=== PATIENT | male | born 1990 | race African-American/Black ===

== ENCOUNTER 2023-08-15 23:05 | Inpatient (IN) | payer OTHER, SELFPAY ==
[2023-08-15 16:31] VITALS: BP 133/65
--- NOTE | 2023-08-15 16:41 | ED.GENMED ---
History of Present Illness
General
Chief Complaint: Overdose Unintentional
Time Seen by Provider: 08/15/23 16:25
Travel History
Have you had any contact with someone who has COVID-19?: No
Do you have any symptoms of coronavirus? Fever > 100 degrees, chills, cough, shortness of breath, sore throat, loss of taste or smell, muscle aches, or headache?: No
History of Present Illness
History of Present Illness:
33-year-old male with history of sickle cell disease presents to the emergency department via EMS after being found sleeping underneath a truck in the [facility] parking lot. He had apparently inhaled 12 cans of electronic duster. States that he is
currently on probation and feels that this is the only way he can get high. Upon arrival he has noted to have saturations in the upper 80% range on room denies any chest pain or difficulty breathing at this time. Denies any suicidal ideation.
Past History
Past History
ED Past Medical History: Asthma and Other (sickle cell, GI bleeding,)
ED Past Surgical History: None and Other (Adenoids)
Patient has exhibited threatening behavior?: No
PSI?: No
Social History
Tobacco: Non-smoker
Alcohol: None
Drug: None
Personal: Single
Living: with family
Employment: Student
Review of Systems
Review of Systems
Allergies reviewed?: Yes
All Other Systems: ROS reviewed and negative except as documented in HPI and ROS
Phy Exam
Physical Exam
Physical Exam:
GEN: Well appearing, NAD, WDWN
Eyes: PERRLA, EOMs intact, no scleral icterus
HENT: NCAT, oral mucosa moist.
Lungs: CTAB, no wheezes, rales, rhonchi, normal chest wall excursion
Cardiac: RRR, no M/R/G, no peripheral edema. Radial pulses 2+ bilat
Neuro: Somewhat somnolent but arouses easily, oriented fully, moves all extremities freely
MSK: No gross deformity or ecchymosis. No edema. No digital clubbing
Skin: No rashes, petechiae. Normal color, no pallor or jaundice.
Psych: Calm, cooperative, proper hygiene
Course
Orders/Labs/Results
Orders:
Orders
08/15/23 16:31
Electrocardiogram (*1) Urgent
Reason for Study: QTc Monitoring
EKG- Treatment ONCE
08/15/23 18:27
CR Chest - 2 Views Urgent
Comment:
Reason For Exam: hypoxia
08/15/23 21:17
Type+Screen Urgent
Complete Blood Count/With Diff Urgent
Comprehensive Metabolic Panel Urgent
Direct Bilirubin Urgent
LDH Urgent
Reticulocyte Count Urgent
08/15/23 21:59
Add On- LAB Urgent
Tests Added?: LDH, direct bilirubin
0.9% Sodium Chloride 1000 ml [Nss] 1,000 ml IV BOLUS
Abnormal Lab Results
08/15/23
21:17
WBC 21.6 H 10^3/uL
(4.8-10.8)
RBC 2.19 L 10^6/uL
(4.70-6.10)
Hgb 7.8 L g/dL
(13.0-18.0)
Hct 21.1 L %
(39.0-52.0)
MCV 96.3 H fL
(80.0-94.0)
MCH 35.6 H pg
(27.0-31.0)
RDW 24.9 H %
(11.5-14.5)
Abs Immat Gran (auto) 0.2 H 10^3/uL
(0-0.05)
Absolute Neuts (auto) 17.0 H 10^3/uL
(1.4-6.5)
Absolute Monos (auto) 1.4 H 10^3/uL
(0.1-0.6)
Immature Gran % 1.1 H %
(0-0.5)
Neutrophils % 78.7 H %
(42.2-75.2)
Lymphocytes % 12.6 L %
(20.5-51.1)
Retic Count 24.0 H %
(0.4-2.8)
Sodium 133 L mmol/L
(135-145)
Glucose 108 H mg/dl
(70-99)
Total Bilirubin 8.5 H mg/dl
(0.2-1.3)
08/15/23 21:17
08/15/23 21:17
Vital Signs
Initial and Last Documented VS:
Initial Vital Signs
Temp Pulse Resp BP Pulse Ox
98 F 83 16 133/65 98
08/15/23 16:31 08/15/23 16:31 08/15/23 16:31 08/15/23 16:31 08/15/23 16:31
Last Documented Vital Signs
Temp Pulse Resp BP Pulse Ox
98 F 102 16 111/56 97
08/15/23 16:31 08/15/23 18:17 08/15/23 18:17 08/15/23 18:17 08/15/23 18:17
MDM/Problems Addressed
MDM/Problems Addressed:
Initially the patient was felt to be presenting in mild hypoxic episode due to hydrocarbon inhaler use however due to persistent hypoxia chest x-ray was obtained, by my interpretation shows mild cardiomegaly and bilateral atelectasis. Given these
findings labs were obtained showing an elevated reticulocyte count and elevated total bilirubin concern for acute chest syndrome in the setting of sickle cell disease. Likely provoked by inhaler use. Will admit for IV fluids and oxygen
*Critical Care Note
Total Time (30-74mins, 75-104mins- exclusive of procedures): Not Applicable
Update Note
Update Note:
1825: Pt remains hypoxic, requiring supplemental O2. Will check CXR, may require labs to eval for sickle cell crisis although he denies CP or myalgia
2023: Patient eventually consented to chest x-ray and labs to evaluate for potential acute chest syndrome/sickle cell crisis. He remains free of chest pain or shortness of breath but continues to have hypoxia on room air
1003: Pt with continued hypoxia, placed on 12L NRB. T bili and retic count high. Will admit for acute chest syndrome
ED Attending Note
-
Portions of this chart may have been created with voice recognition software.� Occasional wrong word or��sound alike� substitutions may have occurred due to the inherent limitations of voice recognition software.
Discharge Plan
Departure
Patient Disposition: Admit
Date of Disposition: 08/15/23
Time of Disposition: 22:08
Admit to: Med/Surg
Presentation/result/management discussed w/ accepting MD/DO: Hospitalist
Discharge Problem:
Acute chest syndrome, Acute hypoxemic respiratory failure, Inhalant use disorder
Prescriptions:
No Action
hydroxyurea 500 mg Capsule
500 mg PO DAILY 30 Days Qty: 30 2RF
folic acid 1 mg Tablet
1 mg PO DAILY Qty: 30 0RF
multivitamin [Daily-Suzie] Tablet
1 tab PO DAILY
potassium chloride [Klor-Con] 20 mEq Packet
20 meq PO DAILY
pseudoephedrine HCl [Sudogest] 30 mg Tablet
30 mg PO DAILY
loratadine 10 mg Tablet
10 mg PO DAILY
quetiapine 150 mg Tablet
300 mg PO HS
Referrals:
NONE,* [Family Provider] -
Interventions
Interventions:
*Risk Screen - Suicide Last Done: 08/15/23 16:34
*General Assessment Last Done: 08/15/23 16:34
*Neglect/Abuse Screening Last Done: 08/15/23 16:34
*ED COVID-19 Vaccine History Last Done: 08/15/23 16:34
ED- Cardiac Assessment Last Done: 08/15/23 16:36
ED- Neurological Assessment Last Done: 08/15/23 16:36
ED-Psychological Assessment Last Done: 08/15/23 16:37
ED- Pulmonary Assessment Last Done: 08/15/23 16:36
Discharge Date and Time
Print Language: TOGOLESE
[2023-08-15 18:17] VITALS: BP 111/56
[2023-08-15 21:23] LABS: % Basophils 0.6 % (0-2); % Eosinophils 0.6 % (0-6); % Immature Granulocytes 1.1 % (0-0.5); % Lymphocytes 12.6 % (20.5-51.1); % Monocytes 6.4 % (1.7-9.3); % Neutrophils 78.7 % (42.2-75.2); Absolute Basophils 0.1 10^3/uL (0-0.2); Absolute Eosinophils 0.1 10^3/uL (0-0.7); Absolute Immature Granulocytes 0.2 10^3/uL (0-0.05); Absolute Lymphocytes 2.7 10^3/uL (1.2-3.4); Absolute Monocytes 1.4 10^3/uL (0.1-0.6); Hematocrit 21.1 % (39.0-52.0); Hemoglobin 7.8 g/dL (13.0-18.0); Mean Corpuscular Hgb 35.6 pg (27.0-31.0); Mean Corpuscular Volume 96.3 fL (80.0-94.0); Mean Platelet Volume 8.9 fL (7.4-10.4); Nucleated Red Blood Cells % 2.2 % (-); Platelet Count 381 10^3/uL (130-400); Red Blood Cell Count 2.19 10^6/uL (4.70-6.10); Red Cell Dist. Width 24.9 % (11.5-14.5); White Blood Cell Count 21.6 10^3/uL (4.8-10.8)
[2023-08-15 21:44] LABS: ALT (SGPT) 23 U/L (0-50); AST (SGOT) 46 U/L (17-59); Albumin 4.1 g/dl (3.5-5.0); Alkaline Phosphatase 69 U/L (38-126); Blood Urea Nitrogen 9 mg/dl (9-20); Calcium 8.9 mg/dl (8.4-10.2); Carbon Dioxide 27 mmol/L (22-30); Chloride 98 mmol/L (98-107); Glucose 108 mg/dl (70-99); Potassium 4.1 mmol/L (3.5-5.1); Sodium 133 mmol/L (135-145); Total Bilirubin 8.5 mg/dl (0.2-1.3); Total Protein 7.6 g/dl (6.3-8.2); eGFR > 60.00
[2023-08-15 21:46] LABS: Anisocytosis 2+
[2023-08-15 21:47] LABS: Macrocytosis 2+; Microcytosis 2+
[2023-08-15 21:48] LABS: Polychromasia 1+
[2023-08-15 21:49] LABS: Poikilocytosis 1+; Target Cells Slight
[2023-08-15 21:50] LABS: Ovalocytes Slight
[2023-08-15 21:52] LABS: Sickled Red Blood Cells 3+
[2023-08-15 21:53] LABS: Normal RBC Morphology No
[2023-08-15 22:12] LABS: Direct Bilirubin 0.3 mg/dl (0.0-0.4); LDH 573 U/L (120-246)
[2023-08-15] MEDS: NSS 1000 IV (22:26)
--- NOTE | 2023-08-15 22:47 | HPS.HSE ---
Family Physician
-
Family Physician: * NONE
Chief Complaint
-
hypoxia
History of Present Illness
33-year-old male past medical history of sickle cell disease, asthma, presenting via EMS after being found sleeping underneath a truck in the [facility] parking lot. Truck was stationary. He had apparently inhaled 12 cans of electronic duster today
prior to coming in. Denies inhaling any truck fumes. He is currently on probation and feels that this is the only way he can get high. He was approached by police and EMS brought him to the hospital.
He denies any chest pain or breathing difficulty. He denies any fevers or chills. He denied any suicidal ideation. He denies any body pains.
Last received blood transfusion 2 months ago. He is on Hydrea but does not follow care program director at this time.
He denies smoking. He does use marijuana sometimes. He drinks alcohol socially. Denies any other drugs.
Medical History
Past Medical History
Past Medical History: Reports Other ( sickle cell disease, asthma)
Past Surgical History: Reports None
Social History
Tobacco: Non-smoker
Alcohol: Occasional
Drug: Marijuana
Family History
Family History: Not pertinent
Allergies / Home Medications
Allergies reflects when Allergies were last updated in [employer].
Home Medications with original date entered in [facility]
Allergy/Medication List:
Allergies
Allergy/AdvReac Type Severity Reaction Status Date / Time
[place] And Derivatives Allergy Unknown Verified 02/05/23 03:49
Home Medications
folic acid 1 mg tablet 1 mg PO DAILY Supplement #30 tabs 10/28/22
hydroxyurea 500 mg capsule 500 mg PO DAILY Autoimmune Disorder 30 days #30 caps 10/28/22
loratadine 10 mg tablet 10 mg PO DAILY 02/05/23
multivitamin (Daily-Suzie tablet) 1 tab PO DAILY 02/05/23
quetiapine 100 mg tablet 300 mg PO HS 08/15/23
Review of Systems
-
History Source: Patient
A 12 point ROS was completed and negative except as noted: Yes
Constitutional: Reports No Symptoms
EENT: Reports No Symptoms
Respiratory: Reports See HPI
Cardiac: Reports No Symptoms
Abdomen/GI: Reports No Symptoms
: Reports No Symptoms
Musculoskeletal: Reports No Symptoms
Skin: Reports No Symptoms
Neurological: Reports No Symptoms
Endocrine: Reports No Symptoms
Hematologic/Lymphatic: Reports No Symptoms
Psych: Reports No Symptoms
Physical Exam
Vital Signs
Vital Signs
Temp Pulse Resp BP Pulse Ox
98 F 102 16 111/56 97
08/15/23 16:31 08/15/23 18:17 08/15/23 18:17 08/15/23 18:17 08/15/23 18:17
Physical Exam
General: Well Developed, Well Nourished and No Apparent Distress
HEENT: NormoCephalic, Moist mucous membranes and Atraumatic
Respiratory: Clear
Cardiac: S1/S2 and Regular Rhythm; No Murmur or Rub
GI: Soft, Non Tender, Non Distended and Normal Bowel Sounds; No Organomegaly
Rectal: Deferred by Provider
Musculoskeletal: No Clubbing, No Cyanosis and No Edema
Skin: No Rash
Neuro: Nonfocal/grossly intact
Laboratory Results
-
08/15/23 21:17
08/15/23 21:17
Laboratory Results
Total Bilirubin 8.5 mg/dl (0.2-1.3) H 08/15/23 21:17
AST 46 U/L (17-59) 08/15/23 21:17
ALT 23 U/L (0-50) 08/15/23 21:17
Alkaline Phosphatase 69 U/L (38-126) 08/15/23 21:17
Data Reviewed
-
Lab Data: Labs Reviewed by me
Old Records: Reviewed
Impression/Plan
-
IMPRESSION:
PLAN:
# Hypoxic respiratory failure secondary to acute chest syndrome secondary to inhalation lung injury from electronic duster
# Sickle cell crisis
-Patient hypoxic requiring 12 L nonrebreather
-No wheezing on examination
-Chest x-ray does not show any definitive focal cardiopulmonary process or signs of infection
-Check carboxyhemoglobin
-IV fluids
-Check type and screen
-Hemoglobin 7.8 so 2 units of blood transfusion to keep hemoglobin above 9
-Total bilirubin 8.5, LDH 570, reticulocyte count of 24%
-Continue hydroxyurea
-Continue folic acid
-No significant pain, avoid opiates
-Oncology consulted
History of mild asthma
-Not on treatment
-DuoNebs every 6 hours for wheezing as needed
Anxiety/depression
-Continue Seroquel
Marijuana user
Full code
DVT prophylaxis�Lovenox
regular diet
[2023-08-15 23:13] VITALS: BP 140/75
[2023-08-16] VITALS (23 sets, daily range): BP systolic 94–180; BP diastolic 60–115; BMI 24.1
[2023-08-16 00:36] LABS: Carboxyhemoglobin 4.3 %
--- NOTE | 2023-08-16 03:49 | TRANSFER ---
Receive pt from the Er at 0320. He was able to ambulate to his bed from the stretcher. He has a unit of PRBC's running via a L AC IV site. Arrived on O2 non rebreather mask.at 12L. Does not want midflow, he prefers the mask. Monitor shows NSR
60's and Pulse Ox i 100%. BP stable 133/82. No complaints of SOB. He is alert and oriented x 3. Oriented to his room and call diaz in reach.
--- NOTE | 2023-08-16 08:25 | CON.ONC ---
Addendum entered and electronically signed by Gilberto Wilkerson DO 08/16/23 11:44:
Patient examined independently and chart reviewed. Agree with the impression and plan as outlined by FUNNEL SETTER below. Sitting up in bed and conversing comfortably without shortness of breath. Exam essentially negative. Hemoglobin 9.8 g/dL
posttransfusion. Total bilirubin regressing 5.3 mg per DL, baseline 3.0. During acute sickling events patient has had LDH in the range of 5000. Continue supportive measures as outlined.
Original Note:
Impression
Impression
Hypoxic respiratory failure secondary to inhalation lung injury from Dust-off
Inhalant abuse
Hx of drug abuse
Acute chest syndrome
Acute sickle cell crisis
Reticulocytosis
Hemolytic anemia
Elevated MCV with use of Hydrea
Leukocytosis
Neutrophilia
Bipolar/anxiety/depression
Plan
Plan
08/14 Hgb 7.8, Hct 21.1
s/p 2units PRBCs
Transfuse as needed to maintain Hgb >8
CBC with diff daily; remains pending this AM
Additional labs ordered: B12/folate, LDH, haptoglobin
Continue Hydrea 500mg daily
Case management consult
Patient agreeable to Psych consult - discussed with Dr. Desai and Dr. Calderon
Dr. Calderon recommends consultation with [facility] via Case Management
Supportive care, pain management
Patient will need to establish with outpatient clinical radiologist upon discharge for management of SS and Hydrea. He is agreeable.
He will require frequent CBC monitoring at least [id number] on Hydrea. We will follow.
Patient History
History of Present Illness
Jules Davis is a pleasant 33 year old male with history of sickle cell disease. He has been seen frequently in ER by Urology for recurrent priapisms while he was incarcerated. He presented last evening, 08/14, via EMS after being found
asleep underneath a stationary truck in a local [employer] parking lot. He had inhaled 12 cans of dust-off and the cans were found around him. He does not recall this. He states he 'was a little too reckless.' He is currently on probation; formerly a
prisoner at [facility]. He has received blood transfusions in the past and he is maintained on Hydrea. He does not have a current Hairspring Assembler. Hydrea was prescribed by the snf's Physician Learning Coach within the past year. He states he has had two
episodes of acute crisis requiring blood products in the past year as well as recurrent priapisms. He required non-rebreather in the ER due to acute hypoxia. He has been admitted for further evaluation and treatment. Currently, he denies acute
symptoms of pain, chest pain, or shortness of breath. He has been out of snf for 3 months and has 8 months left of probation. He is currently living in the [facility] with his father.
Past-Medical/Surgical History
Sickle cell disease
Recurrent priapism
Mild asthma
Hx of drug abuse: inhalants, marijuana, meth, MDMA, cocaine
Hx GIB
Bipolar
Anxiety, depression
Anemia
Patient Medication
�Medication �Instructions �Recorded �Confirmed �Last Taken �Type
folic acid 1 mg tablet 1 mg PO DAILY Supplement #30 tabs 10/28/22 08/15/23 2 Days Ago Rx
~08/13/23
hydroxyurea 500 mg capsule 500 mg PO DAILY Autoimmune 10/28/22 08/15/23 2 Days Ago Rx
Disorder 30 days #30 caps ~08/13/23
loratadine 10 mg tablet 10 mg PO DAILY 02/05/23 08/15/23 2 Days Ago History
~08/13/23
multivitamin (Daily-Suzie tablet) 1 tab PO DAILY 02/05/23 08/15/23 2 Days Ago History
~08/13/23
quetiapine 100 mg tablet 300 mg PO HS 08/15/23 08/15/23 2 Days Ago History
~08/13/23
Active Medications
Generic Name Dose Route Start Last Admin
Trade Name Freq PRN Reason Stop Dose Admin
Acetaminophen 650 mg 08/16/23 00:19
Acetaminophen 325 Mg Tablet PO 09/13/23 00:18
Q4HPRN PRN
mild pain/OLIVA/temp> 100.4F
Albuterol/Ipratropium 3 ml 08/16/23 00:19
Ipratropium 0.5/Albuterol 3 Mg (3 Ml Ampul) INH
R Q4HPRN PRN
wheezing
Protocol
Enoxaparin Sodium 40 mg 08/16/23 18:00
Enoxaparin Sodium 40 Mg/0.4 Ml Syringe SC 09/13/23 17:59
QPM ROBERTO
Folic Acid 1 mg 08/16/23 08:00
Folic Acid 1 Mg Tablet PO 09/13/23 07:59
DAILY ROBERTO
Hydroxyurea 500 mg 08/16/23 08:00
Hydroxyurea 500 Mg Capsule PO 09/13/23 07:59
DAILY ROBERTO
Sodium Chloride 1,000 mls @ 100 mls/hr 08/16/23 00:19
Nss IV
.Q10H ROBERTO
Loratadine 10 mg 08/16/23 08:00
Loratadine 10 Mg Tablet PO 09/13/23 07:59
DAILY ROBERTO
Multivitamins Therapeutic 1 tablet 08/16/23 08:00
Multivitamin Tablet PO 09/13/23 07:59
DAILY ROBERTO
Quetiapine Fumarate 300 mg 08/16/23 22:00
Quetiapine 100 Mg Tablet PO 09/13/23 21:59
HS ROBERTO
Sodium Chloride 0 flush 08/16/23 02:00
Sodium Chloride 0.9% (Flush) Syringe IV 09/13/23 01:59
PER PROTOCOL ROBERTO
Review of Systems
-
History Source: Patient, Coordinated Provider and Records
Constitutional: Reports No Symptoms
EENT: Reports No Symptoms
Respiratory: Reports No Symptoms
Cardiac: Reports No Symptoms
GI: Reports No Symptoms
Breast: Reports N/A
: Reports No Symptoms
Musculoskeletal: Reports No Symptoms
Skin: Reports No Symptoms
Neuro: Reports No Symptoms
Endocrine: Reports No Symptoms
Hematologic/Lymphatic: Reports No Symptoms
Allergy / Immunology: Reports No Symptoms
Psych: Reports No Symptoms
Physical Exam
-
Patient is resting in bed. Tolerating breakfast. on nasal cannula oxygen. denies pain. he states he is agreeable to consult with Psych and CM/SW.
General: Well Developed, Well Nourished, No Apparent Distress, Comfortable and Conversant
HEENT: Jaundice (scleral icterus)
Cardiology: S1 and S2
Pulmonary: Other (diminished, 2L O2 via nasal cannula )
GI: Soft and Normal Bowel Sounds
Genito-Urinary: Deferred by me and Other (cleo/yellow urine)
Musculoskeletal: No Edema
Extremities: Pulses Present
Neurology: Non Focal
Skin: Warm and Dry
Hematologic / Lymphatic: No Lymphadenopathy
Psych: Calm
Labs
Lab Results
WBC 21.6 10^3/uL (4.8-10.8) H 08/15/23 21:17
RBC 2.19 10^6/uL (4.70-6.10) L 08/15/23 21:17
Hgb 7.8 g/dL (13.0-18.0) L 08/15/23 21:17
Hct 21.1 % (39.0-52.0) L 08/15/23 21:17
MCV 96.3 fL (80.0-94.0) H 08/15/23 21:17
MCH 35.6 pg (27.0-31.0) H 08/15/23 21:17
MCHC 37.0 g/dL (33.0-37.0) 08/15/23 21:17
RDW 24.9 % (11.5-14.5) H 08/15/23 21:17
Plt Count 381 10^3/uL (130-400) 08/15/23 21:17
MPV 8.9 fL (7.4-10.4) 08/15/23 21:17
Abs Immat Gran (auto) 0.2 10^3/uL (0-0.05) H 08/15/23 21:17
Absolute Neuts (auto) 17.0 10^3/uL (1.4-6.5) H 08/15/23 21:17
Absolute Lymphs (auto) 2.7 10^3/uL (1.2-3.4) 08/15/23 21:17
Absolute Monos (auto) 1.4 10^3/uL (0.1-0.6) H 08/15/23 21:17
Absolute Eos (auto) 0.1 10^3/uL (0-0.7) 08/15/23 21:17
Absolute Basos (auto) 0.1 10^3/uL (0-0.2) 08/15/23 21:17
Immature Gran % 1.1 % (0-0.5) H 08/15/23 21:17
Neutrophils % 78.7 % (42.2-75.2) H 08/15/23 21:17
Lymphocytes % 12.6 % (20.5-51.1) L 08/15/23 21:17
Monocytes % 6.4 % (1.7-9.3) 08/15/23 21:17
Eosinophils % 0.6 % (0-6) 08/15/23 21:17
Basophils % 0.6 % (0-2) 08/15/23 21:17
Creatinine 0.7 mg/dL (0.7-1.3) 08/15/23 21:17
Vital Signs
Vital Signs
Temp Pulse Resp BP Pulse Ox
98.6 F 75 14 133/76 100
08/16/23 07:00 08/16/23 07:45 08/16/23 07:45 08/16/23 06:39 08/16/23 07:56
08/15/23 CXR: No definite focal acute cardiopulmonary process. Minimal basilar atelectasis posteriorly.
[2023-08-16] MEDS: NSS 1000 IV ×2 (08:32→17:53)
[2023-08-16] MEDS: HYDREA 500 MG PO (08:32)
[2023-08-16] MEDS: CLARITIN 10 MG PO (08:32)
[2023-08-16] MEDS: FOLVITE 1 MG PO (08:32)
[2023-08-16] MEDS: THERAGRAN 1 TABLET PO (08:32)
[2023-08-16 11:04] LABS: % Basophils 0.8 % (0-2); % Eosinophils 5.2 % (0-6); % Immature Granulocytes 1.1 % (0-0.5); % Lymphocytes 18.5 % (20.5-51.1); % Monocytes 8.2 % (1.7-9.3); % Neutrophils 66.2 % (42.2-75.2); Absolute Basophils 0.1 10^3/uL (0-0.2); Absolute Eosinophils 0.7 10^3/uL (0-0.7); Absolute Immature Granulocytes 0.2 10^3/uL (0-0.05); Absolute Lymphocytes 2.6 10^3/uL (1.2-3.4); Absolute Monocytes 1.2 10^3/uL (0.1-0.6); Absolute Neutrophils 9.4 10^3/uL (1.4-6.5); Hematocrit 26.4 % (39.0-52.0); Mean Corp Hgb Conc. 37.1 g/dL (33.0-37.0); Mean Corpuscular Volume 91.7 fL (80.0-94.0); Mean Platelet Volume 9.1 fL (7.4-10.4); Nucleated Red Blood Cells % 2.6 % (-); Platelet Count 369 10^3/uL (130-400); Red Blood Cell Count 2.88 10^6/uL (4.70-6.10); Red Cell Dist. Width 23.1 % (11.5-14.5); White Blood Cell Count 14.1 10^3/uL (4.8-10.8)
[2023-08-16 11:05] LABS: Hemoglobin 9.8 g/dL (13.0-18.0)
[2023-08-16] MEDS: NSS IV (11:23)
[2023-08-16 11:35] LABS: ALT (SGPT) 22 U/L (0-50); AST (SGOT) 40 U/L (17-59); Alkaline Phosphatase 66 U/L (38-126); Blood Urea Nitrogen 5 mg/dl (9-20); Calcium 9.3 mg/dl (8.4-10.2); Carbon Dioxide 27 mmol/L (22-30); Chloride 105 mmol/L (98-107); Estimated Creatinine Clearance > 125 ml/min; Glucose 127 mg/dl (70-99); Potassium 3.9 mmol/L (3.5-5.1); Sodium 136 mmol/L (135-145); Total Bilirubin 5.3 mg/dl (0.2-1.3); Total Protein 7.6 g/dl (6.3-8.2); eGFR > 60.00
[2023-08-16 12:27] LABS: Folate > 20.0 ng/ml (2.76-20); Vitamin B12 435 pg/ml (239-931)
--- NOTE | 2023-08-16 12:41 | CM ---
Addendum entered by Veronique Silverman RN 08/16/23 15:10:
Spoke with [facility]; the patient was spoken to by phone and is interested in doing the [facility] IOP/Intensive Outpatient program. Someone from [facility] will see him tomorrow and can help him call [facility].
Plan home with [facility] program by public transport.
Original Note:
Patient with Hx sickle cell disease, bipolar/anxiety/depression, substance abuse with Dx hypoxic respiratory failure secondary to inhalation lung injury from Dust-off, Acute chest syndrome, Acute sickle cell crisis s/p transfusions.
Met with patient who states he is temporarily residing in a 2 story row house with his father Cong Traylor in [facility].
Address on chart is mother's house in [place].
The patient has been independent in ADLs and ambulation.
Jules says he uses public transportation to get around.
He has no DME or prior VN.
The patient has no PCP.
Pharmacy - [facility]
CM Consult: help for d/c planning with psychosocial support.
Message to Dr Jolly: CM can only offer [facility] and cannot independently make recommendations for psych resources. Advised that if psych resources are needed, patient may benefit from a Psych Consult.
The patient states he has participated in rehab programs at [facility] and [facility].
He was initially not interested in talking to [facility] but finally agreed, and provided his cell phone for [facility] to contact him.
Plan follow up after seen by [facility].
--- NOTE | 2023-08-16 14:14 | CON.MD ---
Consultation - Medical
-
patient seen chart reviewed. spoke with cm. the patient is a 33 year old male who was brought here after being found sleeping under a truck in the [facility] parking lot. he had huffed more than ten containers of duster. when i asked him what might
have happened if the driver/merchandiser started the engine and pulled out he assured me that this could not have happened as it was just 'part of a truck....' and could not be driven. he huffs bc he is on probation and this is one substance that could not be
detected. when he was no on probation he would use 'everything'. he has been on probation for four years and admits he has violated his probation hence the length of time. he says he is going to go to [facility] [place] for iop. he does not feel he
needs in patient rehab at this point. he is not depressed. he has no sx of psychosis. he says he has been told he is schizophrenic but clearly this is not the case. he was placed on seroquel for sleep while at [facility] but has not taken in in
some time having left skilled nursing three months ago and only was given a one month supply. appetite is good. he can enjoy himself. he is not suicidal. when i asked about bipolar sx he said he has short lived changes in mood due to circumstance and does
not see self as mood labile.
past psych hx patient was in rehab three times at [facility] [place] and he thinks he may have been at dual dx at at some point. he has not taken psych meds regularly. see above
past med hx sickle cell there is notation of prolonged qtc syndrome but qtc normal. i did research back and found some prolonged in the past. patient with hx hyponatremia normal now. he has been transfused to get hgb above eight. hx priapism in
the past. hx asthma
substance abuse 'everythingi when i am not on probation' most recent huffing see above
family hx patient says there is fh of psych and d and a but he cannot really say what illnesses
social hx patient does have family but there is conflict there can stay w dad but not a great space. he has had some jobs but not for long periods of time. says graduated full scale college. enjoys anime and drawing. has had relationship w women
but no kids
mse alert pleasant cooperative. speech and thought process nl no psychosis mood is euthymic affect appropriate no suicidal thoughts intelligence likely average insight judgment not great
dx mixed substance dependence possibly underlying bipolar
plan would dc seroquel. not a great mix with so much huffing. also he was not taking it at all in the past two months according to him. melatonin for sleep 10 mg. he talked to [facility] and they are calling him back later today to see if he would
agree to in patient rehab which he at this moment does not wish to attend. patient should attend rehab but no one can make him do it. he could have underlying bipolar but that dx would take some time to establish and would require a period of
observation when sober. psych signing off.
[2023-08-16 14:31] LABS: Urine Albumin Negative (Neg - Trace); Urine Bilirubin Negative (Negative); Urine Character Clear (Clear); Urine Color Straw; Urine Glucose Negative (Negative); Urine Ketone Negative (Negative); Urine Leukocyte Trace (Negative); Urine Nitrite Negative (Negative); Urine Occult Blood Negative (Negative); Urine Specific Gravity 1.005 (<1.030); Urine Urobilinogen Negative (Neg - 1+)
[2023-08-16] MEDS: VITAMIN B-12 1000 MCG PO (14:33)
[2023-08-16 14:47] LABS: Urine Bacteria Few (Negative); Urine Red Blood Cell 0-2 /HPF (0-2); Urine Squamous Cell 0-2 /LPF (Few); Urine White Cell 0-2 /HPF (0-5)
--- NOTE | 2023-08-16 15:13 | W.PN.HOSP.TC ---
Today's Communication/Plan
-
supportive care, IVF, pain control
monitor O2 needs
repeat labs in AM
tx tele floor
Assessment / Plan
Assessment / Plan
Assessment:
Acute hypoxic respiratory insufficiency
Inhalant abuse
- resolved; now on RA
- CXR Clear
- Carboxyhemoglobin low normal
Hx of Sickle cell disease with acute sickle cell crisis, Reticulocytosis
Anemia, marcocytic - hemolytic
- 2 unit PRBC, Hb now 9.8
- continue IVF
- follow CMP/Bili/Retic/LDH
- continue Hydrea/Folic acid
- Hematology following; will also need OP Hematology f/u
History of mild asthma
- Not on treatment
- DuoNebs every 6 hours for wheezing as needed
Bipolar/anxiety/depression
- psych evaluated; stop Seroquel
Marijuana user
Hx of drug abuse
- BCARES following
HX of priapism
DVT ppx: Lovenox
Code: Full
Anticipated Discharge: 24 - 48 hours
Subjective/Interval History
-
Date of Service: August 16, 2023
no complaints currently
Objective Data
-
Labs:
Laboratory Results
08/16/23 08/16/23
08:37 10:53
WBC 14.1 H
Hgb 9.8 L D
Hct 26.4 L
Plt Count 369
HCO3 Cancelled
Sodium 136
Potassium 3.9
Chloride 105
Carbon Dioxide 27
BUN 5 L
Creatinine 0.7
Glucose 127 H
Calcium 9.3
Total Bilirubin 5.3 H
AST 40
ALT 22
Alkaline Phosphatase 66
Vital Signs:
Vital Signs
Temp Pulse Resp BP Pulse Ox
98.5 F 80 20 136/79 96
08/16/23 11:00 08/16/23 10:00 08/16/23 10:00 08/16/23 10:00 08/16/23 10:00
I&O
08/15/23 08/16/23 08/17/23
06:59 06:59 06:59
Intake Total 490 / 490 250 / 250
Output Total 1100 / 1100 600 / 600
Balance -610 / -610 -350 / -350
Physical Exam
-
General: No Apparent Distress
HEENT: Normocephalic and Atraumatic
Respiratory: Negative Wheezes or Rales
Cardiac: Regular Rhythm and S1/S2
GI: Soft and Nontender
Genito-urinary: No Costovertebral Tender
Musculoskeletal: No Edema
Neuro: AO x 3
Psych: Calm
Data Reviewed
-
Total Time Spent with Patient (in minutes): 45
Labs: Labs Reviewed by me
[2023-08-16] MEDS: LOVENOX 40 MG SC (17:53)
[2023-08-16] MEDS: MELATONIN 10 MG PO (21:48)
[2023-08-17] VITALS (7 sets, daily range): BP systolic 117–150; BP diastolic 61–81
--- NOTE | 2023-08-17 00:16 | PTCARENOTE ---
pt uncooperative at times, ripping off tele leads, BP cuff and oxygen. reapplied.
[2023-08-17] MEDS: NSS 1000 IV ×3 (03:16→21:37)
[2023-08-17 05:15] LABS: % Basophils 0.8 % (0-2); % Eosinophils 10.7 % (0-6); % Immature Granulocytes 0.9 % (0-0.5); % Monocytes 11.4 % (1.7-9.3); % Neutrophils 45.2 % (42.2-75.2); Absolute Basophils 0.1 10^3/uL (0-0.2); Absolute Eosinophils 1.3 10^3/uL (0-0.7); Absolute Immature Granulocytes 0.1 10^3/uL (0-0.05); Absolute Lymphocytes 3.7 10^3/uL (1.2-3.4); Absolute Monocytes 1.4 10^3/uL (0.1-0.6); Absolute Neutrophils 5.3 10^3/uL (1.4-6.5); Hematocrit 25.4 % (39.0-52.0); Hemoglobin 9.2 g/dL (13.0-18.0); Mean Corp Hgb Conc. 36.2 g/dL (33.0-37.0); Mean Corpuscular Hgb 34.3 pg (27.0-31.0); Mean Corpuscular Volume 94.8 fL (80.0-94.0); Nucleated Red Blood Cells % 2.8 % (-); Platelet Count 280 10^3/uL (130-400); Red Blood Cell Count 2.68 10^6/uL (4.70-6.10); Red Cell Dist. Width 23.1 % (11.5-14.5); Reticulocyte Count 19.2 % (0.4-2.8); White Blood Cell Count 11.8 10^3/uL (4.8-10.8)
[2023-08-17 05:35] LABS: ALT (SGPT) 23 U/L (0-50); AST (SGOT) 48 U/L (17-59); Albumin 3.8 g/dl (3.5-5.0); Alkaline Phosphatase 76 U/L (38-126); Blood Urea Nitrogen 11 mg/dl (9-20); Calcium 9.1 mg/dl (8.4-10.2); Carbon Dioxide 24 mmol/L (22-30); Chloride 108 mmol/L (98-107); Estimated Creatinine Clearance > 125 ml/min; Glucose 97 mg/dl (70-99); LDH 571 U/L (120-246); Sodium 137 mmol/L (135-145); Total Bilirubin 7.5 mg/dl (0.2-1.3); Total Protein 7.4 g/dl (6.3-8.2); eGFR > 60.00
--- NOTE | 2023-08-17 08:17 | VATNOTE ---
During routine assessment of pt's IVs, attempted to assess his IV in his R median cubital antecubital and pt states 'I took it out sometime overnight.' IV on pt's bedside table, appeared in tact. PCN notified.
[2023-08-17] MEDS: HYDREA 500 MG PO (09:09)
[2023-08-17] MEDS: VITAMIN B-12 1000 MCG PO (09:09)
[2023-08-17] MEDS: THERAGRAN 1 TABLET PO (09:10)
[2023-08-17] MEDS: FOLVITE 1 MG PO (09:10)
[2023-08-17] MEDS: CLARITIN 10 MG PO (09:10)
--- NOTE | 2023-08-17 10:30 | W.PN.ONC ---
Documented by User: Evon Mcdaniel MD, Resident 08/17/23 12:59
Today's Communication / Plan
-
CBC, and CMP.
Impression
Impression
33 Yo M admitted to hospital on 08/14 for hypoxic respiratory failure secondary to inhalational lung injury from dust off spray found to have acute chest syndrome, and sickle cell crisis.
Acute chest syndrome and sickle cell crisis
Hemolytic anemia and reticulocytosis secondary to sickle cell disease.
Elevated MCV with use of Hydrea
Leukocytosis
Neutrophilia
Plan
Plan
Hemolytic Anemia -
Hb on 08/14 Hgb 7.8 s/p 2 units of PRBC transfusion, 08/16 - 9.2
Hct - 21.1 on 08/14 to 25.4 on 08/16
Transfuse as needed to maintain Hgb >8
B12 WNL, Folate >20, LDH - 571, pending haptoglobin levels. Elevated Bilirubin levels.
Continue Hydrea 500mg daily
Case management has seen him.
Supportive care, pain management.
Outpatient hematology follow up, and frequent CBC monitoring at least [id number] on Hydrea.
Subjective/Objective
Subjective/Objective
Not in pain, denies chest pain, hip pain, SOB, palpitations, abnormal erections, headaches, nausea or vomitings.
Vital Signs:
Vital Signs
Temp Pulse Resp BP Pulse Ox
98.2 F 68 17 117/61 93
08/17/23 07:30 08/17/23 06:00 08/16/23 20:03 08/17/23 04:00 08/17/23 06:00
Lab Results:
Laboratory Data
WBC 11.8 10^3/uL (4.8-10.8) H 08/17/23 04:48
Hgb 9.2 g/dL (13.0-18.0) L 08/17/23 04:48
Plt Count 280 10^3/uL (130-400) D 08/17/23 04:48
eGFR > 60.00 08/17/23 04:48

Documented by User: Duane Costa MD 08/17/23 15:24
Plan
Plan
1. Siclle cell disease - Hemolytic Anemia -
Hb on 08/14 Hgb 7.8 s/p 2 units of PRBC transfusion, 08/16 - 9.2
Hct - 21.1 on 08/14 to 25.4 on 08/16
Transfuse as needed to maintain Hgb >8
B12 WNL, Folate >20, LDH - 571, pending haptoglobin levels. Elevated Bilirubin levels.
Continue Hydrea 500mg daily
Case management has seen him.
Supportive care, pain management.
Outpatient hematology follow up, and frequent CBC monitoring at least [id number] on Hydrea.
Hematology Addendum:
Pt seen and evaluated and agree w/ resident note and plan as outlined
--- NOTE | 2023-08-17 11:13 | PN.CDI ---
CDI
- -
CDI:
Physician Documentation Request
Admit Date: 08/15/23 23:05
Dear Doctor Giselle,
Please review the following and provide your response in the progress notes.
Clinical Indicators:
Documentation in the record on includes the diagnosis of respiratory failure. The patient's respiratory clinical indicators were the following:
- Lab tests:
- Diagnostic studies:
- Progress Notes:
- Nurses Notes:
- Ancillary Notes:
- Other documentation:
H+P, 08/14
#...had apparently inhaled 12 cans of electronic duster.
#Upon arrival he has noted to have saturations in the
#...upper 80% range on room ...
#1825: Pt remains hypoxic, requiring supplemental O2.
#2023:He remains free of chest pain or shortness of breath
#...but continues to have hypoxia on room air
#Acute chest syndrome, Acute hypoxemic respiratory failure, Inhalant use disorder
H+P, 08/14
# Hypoxic respiratory failure secondary to
#...acute chest syndrome secondary to inhalation lung injury from electronic duster
# Sickle cell crisis
#-Patient hypoxic requiring 12 L nonrebreather
PN, 08/15
#Acute hypoxic respiratory insufficiency
#Inhalant abuse
#- resolved; now on RA
Recognized standard criteria for respiratory failure includes:
(Source: [employer] Hospitalist Mar 2013)
ABGs (1 or more)
�PO2 <60 or RA SpO2 <91%
�PcO2 >50 and pH <7.35
�pO2 decrease or pcO2 increase by 10 mmHg from baseline if known Symptoms:
�Tachypnea, SOB, dyspnea
�Pallor or cyanosis
�Anxiety or restlessness
�Use of accessory muscles
�Unable to speak in complete sentences
Supplemental O2 requirement of 40% (5LPM) or more Intubation is not required
Based on the above information and the recognized standard for respiratory failure could you please verify this diagnoses is still accurate and reflective of the patient�s condition to ensure quality of the medical record.
Please clarify in the Progress Notes:
Respiratory failure is/was present and is a clinical diagnosis based on (please include this additional support in the medical record)
Acute Hypoxic respiratory failure, POA, now resolved
After study respiratory failure has been ruled out
Acute hypoxic respiratory insufficiency
Other(please specify)
Use of terms such as suspected, likely, concern for, or probable (associated with a specific diagnosis that is being evaluated, monitored, or treated as if it exists) are acceptable and can be coded in the inpatient setting, when documented at the
time of discharge.
Thank you,
Rubi St RN BSN CCDS
CDI Specialist
please contact via tiger text
Please use your independent medical judgment in providing your response.
--- NOTE | 2023-08-17 12:07 | CON.GI ---
Addendum entered and electronically signed by Helena Nunez Do, MD 08/17/23 16:50:
I saw and examined the patient.
The LOGGING SPECIALIST's note was reviewed and I agree with the note.
Comment: Chris is a 33yo M with h/o asthma, bipolar and sickle cell disease who was admitted under truck after inhalation of duster canisters. GI consulted for elevated TB most of which is indirect. Exam sleepy arousable. VSS. Labs noted. Mostly
INDIRECT bilirubin. Normal direct.
Impression
- Elevated TB all indirect
Likely from hemolytic anemia in setting of sickle cell crisis
Denies abd pain, rest of liver enzymes are normal
- Inhalation abuse
- Bipolar disorder
- Asthma
Recommendations
- C/w diet
- Do not feel that MRI/MRCP in absence of abd pain and elevations AST/ALT is needed but will defer to primary team
- At this juncture no GI recommendations
- Appreciate hematology recs
GI will sign off please call for questions
Original Note:
Consultation
-
Date/Time Consultation Requested: 08/17/23 1200
Date/Time Consultation Performed: 08/17/23 1210
Requesting Provider: Digna Desai MD
Performing Provider: DAKOTA Hudson, Helena Soto MD
Reason for Consultation: increased LFT's
Medical History
Chief Complaint / HPI
Chief Complaint: increased LFT's
History of Present Illness:
Pt is a 33yo presents with hx asthma, bipolar, substance abuse, Priapisms and sickle cell disease. He is on chronic Hydrea use with elevated MCV prescribed by detention but now out on probation with no hematology follow. He now presents as found
down under truck at [facility] after inhaling 12 can electric duster. On admission noted with WBC 14,100, hbg 7.8 but also noted bili 8.5 with D bili 0.3, AST 476, ALT 23, and alk phos 69. LDH was 573. MRI pending.
At this time pt admits to various symptoms since childhood with sickle cell disease including thigh pain and priapism but denies any significant GI symptoms. He was followed at [facility] as a child then MD in [place]. Last care at [facility]. He
currently denies dysphagia, GERD, nasuea,vomiting, abominal pain, diarrhea, blood or black in stool. No hx EGD or colonoscopy in past.
Past Medical History
Past Medical History: Asthma, Psychiatric (bipolar disease ) and Other (sickle cell disease, acute chest syndrome, elevated LFt's in past with sickle cell crisis, GI bleed, priapism, substance abuse)
Past Surgical History: Other (adenoids)
Social History
Tobacco: Non-Smoker
Alcohol: None
Drug: Other (polysubtance abuse admits last 3 years ago prior to [employer])
Living: With Family
Employment: Employed
Family History
Family History: Other (no family hx sickle cell or GI malignancies )
Allergies / Home Medications
Allergy/AdvReac Type Severity Reaction Status Date / Time
Camuy And Derivatives Allergy Unknown Verified 02/05/23 03:49
�Medication �Instructions �Recorded
folic acid 1 mg tablet 1 mg PO DAILY Supplement #30 tabs 10/28/22
hydroxyurea 500 mg capsule 500 mg PO DAILY Autoimmune 10/28/22
Disorder 30 days #30 caps
loratadine 10 mg tablet 10 mg PO DAILY Allergies 02/05/23
multivitamin (Daily-Suzie tablet) 1 tab PO DAILY Supplement 02/05/23
quetiapine 100 mg tablet 300 mg PO HS Mental Health/Anxiety 08/15/23
Review of Systems
-
History Source: Patient
Constitutional: Reports No Symptoms
EENT: Reports No Symptoms
Respiratory: Reports No Symptoms
Cardiac: Reports No Symptoms
Abdomen/GI: Reports No Symptoms
: Reports No Symptoms
Musculoskeletal: Reports No Symptoms
Skin: Reports No Symptoms
Neurological: Reports No Symptoms
Endocrine: Reports No Symptoms
Hematologic/Lymphatic: Reports No Symptoms
Vital Signs
Temp Pulse Resp BP Pulse Ox
97.7 F 67 17 137/81 93
08/17/23 11:00 08/17/23 10:00 08/16/23 20:03 08/17/23 09:09 08/17/23 10:00
Physical Exam
Exam
General: Well Developed, Well Nourished and No Apparent Distress
HEENT: Normocephalic, Anicteric and Other (dry mouth )
Respiratory: Clear and Wheezes
Cardiac: Regular Rhythm
GI: Soft, Non Tender and Non Distended
Musculoskeletal: No Clubbing and No Cyanosis
Skin: Warm and Dry
Neuro: Awake, Alert and AO x 3
Psych: Calm
Results
WBC 11.8 10^3/uL (4.8-10.8) H 08/17/23 04:48
Hgb 9.2 g/dL (13.0-18.0) L 08/17/23 04:48
Hct 25.4 % (39.0-52.0) L 08/17/23 04:48
MCV 94.8 fL (80.0-94.0) H 08/17/23 04:48
Plt Count 280 10^3/uL (130-400) D 08/17/23 04:48
Absolute Neuts (auto) 5.3 10^3/uL (1.4-6.5) 08/17/23 04:48
Sodium 137 mmol/L (135-145) 08/17/23 04:48
Potassium 4.0 mmol/L (3.5-5.1) 08/17/23 04:48
Chloride 108 mmol/L (98-107) H 08/17/23 04:48
Carbon Dioxide 24 mmol/L (22-30) 08/17/23 04:48
BUN 11 mg/dl (9-20) 08/17/23 04:48
Creatinine 0.7 mg/dL (0.7-1.3) 08/17/23 04:48
Calcium 9.1 mg/dl (8.4-10.2) 08/17/23 04:48
Total Bilirubin 7.5 mg/dl (0.2-1.3) H 08/17/23 04:48
AST 48 U/L (17-59) 08/17/23 04:48
ALT 23 U/L (0-50) 08/17/23 04:48
Alkaline Phosphatase 76 U/L (38-126) 08/17/23 04:48
Diagnostic Image Results:
no abd imaging
Prior GI Procedures:
EGD: none
Colonoscopy: none
Assessment / Plan
-
Pt is a 33yo presents with hx asthma, bipolar, substance abuse, Priapisms and sickle cell disease. He is on chronic Hydrea use with elevated MCV prescribed by detention but now out on probation with no hematology follow. He now presents as found
down under truck at [facility] after inhaling 12 can electric duster. On admission noted with WBC 14,100, hbg 7.8, but also noted bili 8.5 with D bili 0.3, AST 476, ALT 23, and alk phos 69. LDH was 573. MRI pending.
-elevated bilirubin with normal Direct bili
-hx sickle cell disease
-inhalation of electric duster prior to admission
-anemia
-MCV elevation with hydrea use
-leukocytosis
other medical problems:
-asthma
-bipolar
-substance abuse
-priapism
PLAN:
etiology of elevated bili with normal D bili and elevated LDH on admission likely hemolysis with hx sickle cell disease
will repeat D bili today
await heme inputs/p transfusion with hbg
no current abdominal pain or signs of active bleeding with anemia
for MRI abdomen
reviewed with patient will need follow up after discharge for sickle cell management
will review with Dr. Soto for further recommendations
appreciate psych input with kristieing
-
-
Thank you for consultation and allowing me to participate in the patient's care. Please call the licensed nuclear control room operator GI physician during the after hours with any questions or concerns.
--- NOTE | 2023-08-17 13:07 | PTCARENOTE ---
pt transferred from IMU awake and alert, denies pain. RRR, LCTA B/L on RA. abd soft NT +BS x4. skin CDI no edema, +PP b/L CB in reach
[2023-08-17 13:27] LABS: Direct Bilirubin 0.3 mg/dl (0.0-0.4)
--- NOTE | 2023-08-17 13:49 | W.PN.HOSP.TC ---
Today's Communication/Plan
-
GI workup at Heme's request
MRI
follow AM labs, possible Dc tomorrow
Assessment / Plan
Assessment / Plan
Assessment:
Acute hypoxic respiratory insufficiency
Inhalant abuse
- resolved; now on RA
- CXR Clear
- Carboxyhemoglobin low normal
Elevated Bilirubin
- check D. bili
- MRI ordered
- GI consulted
Hx of Sickle cell disease with acute sickle cell crisis, Reticulocytosis
Anemia, macrocytic - hemolytic
- 2 unit PRBC, Hb now 9.2
- continue IVF
- follow CMP/Bili/Retic/LDH
- continue Hydrea/Folic acid
- Hematology following; will also need OP Hematology f/u
History of mild asthma
- Not on treatment
- DuoNebs every 6 hours for wheezing as needed
Bipolar/anxiety/depression
- psych evaluated; stop Seroquel
Marijuana user
Hx of drug abuse
- BCARES following
HX of priapism
DVT ppx: Lovenox
Code: Full
Anticipated Discharge: 24 - 48 hours
Subjective/Interval History
-
Date of Service: August 17, 2023
no complaints
denies abd pain
Objective Data
-
Labs:
Laboratory Results
08/17/23
04:48
WBC 11.8 H
Hgb 9.2 L
Hct 25.4 L
Plt Count 280 D
Sodium 137
Potassium 4.0
Chloride 108 H
Carbon Dioxide 24
BUN 11
Creatinine 0.7
Glucose 97
Calcium 9.1
Total Bilirubin 7.5 H
AST 48
ALT 23
Alkaline Phosphatase 76
Vital Signs:
Vital Signs
Temp Pulse Resp BP Pulse Ox
98.4 F 77 16 132/73 98
08/17/23 13:13 08/17/23 13:13 08/17/23 13:13 08/17/23 13:13 08/17/23 13:13
I&O
08/16/23 08/17/23 08/18/23
06:59 06:59 06:59
Intake Total 490 / 490 4730 / 4730 800 / 800
Output Total 1100 / 1100 2850 / 2850 2150 / 2150
Balance -610 / -610 1880 / 1880 -1350 / -1350
Physical Exam
-
General: No Apparent Distress
HEENT: Normocephalic and Atraumatic
Respiratory: Negative Wheezes or Rales
Cardiac: Regular Rhythm and S1/S2
GI: Soft and Nontender
Genito-urinary: No Costovertebral Tender
Musculoskeletal: No Edema
Neuro: AO x 3
Hematologic / Lymphatic: No Lymphadenopathy
Psych: Calm
Data Reviewed
-
Total Time Spent with Patient (in minutes): 45
Labs: Labs Reviewed by me
[2023-08-17 15:38] LABS: Haptoglobin <10 mg/dL (30-200)
--- NOTE | 2023-08-17 16:39 | CM ---
Patient with Hx sickle cell disease, bipolar/anxiety/depression, substance abuse with Dx hypoxic respiratory failure secondary to inhalation lung injury from Dust-off, Acute chest syndrome, Acute sickle cell crisis s/p transfusions.
Spoke with NAZIA Robles; the patient plans on attending the [facility] program and will enroll himself in the progam.
Plan home with recommendation for [facility].
--- NOTE | 2023-08-17 16:50 | W.PN.UPDATE ---
Update Note
Progress Note Update
Billing purposes
[2023-08-17] MEDS: LOVENOX 40 MG SC (17:47)
[2023-08-17] MEDS: MELATONIN 10 MG PO (21:29)
[2023-08-18 03:09] VITALS: BP 142/75
[2023-08-18 07:00] VITALS: BP 135/73
[2023-08-18] MEDS: HYDREA 500 MG PO (07:55)
[2023-08-18] MEDS: CLARITIN 10 MG PO (07:55)
[2023-08-18] MEDS: NSS 1000 IV (07:55)
[2023-08-18] MEDS: FOLVITE 1 MG PO (07:55)
[2023-08-18] MEDS: VITAMIN B-12 1000 MCG PO (07:55)
[2023-08-18] MEDS: THERAGRAN 1 TABLET PO (07:55)
[2023-08-18 08:42] LABS: % Basophils 1.1 % (0-2); % Eosinophils 12.5 % (0-6); % Immature Granulocytes 1.1 % (0-0.5); % Lymphocytes 25.7 % (20.5-51.1); % Monocytes 12.6 % (1.7-9.3); Absolute Basophils 0.1 10^3/uL (0-0.2); Absolute Eosinophils 1.4 10^3/uL (0-0.7); Absolute Immature Granulocytes 0.1 10^3/uL (0-0.05); Absolute Lymphocytes 2.9 10^3/uL (1.2-3.4); Absolute Monocytes 1.4 10^3/uL (0.1-0.6); Absolute Neutrophils 5.4 10^3/uL (1.4-6.5); Hematocrit 25.4 % (39.0-52.0); Hemoglobin 9.4 g/dL (13.0-18.0); Mean Corpuscular Hgb 34.6 pg (27.0-31.0); Mean Corpuscular Volume 93.4 fL (80.0-94.0); Mean Platelet Volume 9.9 fL (7.4-10.4); Nucleated Red Blood Cells % 2.1 % (-); Platelet Count 369 10^3/uL (130-400); Red Blood Cell Count 2.72 10^6/uL (4.70-6.10); Red Cell Dist. Width 22.5 % (11.5-14.5); Reticulocyte Count 18.5 % (0.4-2.8); White Blood Cell Count 11.4 10^3/uL (4.8-10.8)
--- NOTE | 2023-08-18 09:54 | W.PN.HOSP.TC ---
Today's Communication/Plan
-
dc to home
Assessment / Plan
Assessment / Plan
Assessment:
Acute hypoxic respiratory insufficiency (never on 12L, only 2L or less at all times. 12L incorrectly documented by staff)
Inhalant abuse
- resolved; now on RA
- CXR Clear
- Carboxyhemoglobin low normal
Elevated Bilirubin
- indirect from hemolysis
- appreciate GI eval; no imaging indicated
Hx of Sickle cell disease with acute sickle cell crisis, Reticulocytosis
Anemia, macrocytic - hemolytic
- 2 unit PRBC, Hb now 9.4
- repeat CBC in 2 weeks while on Hydrea
- continue Hydrea/Folic acid/B12 at discharge
- OP Hematology f/u info given
History of mild asthma
- Not on treatment
- DuoNebs every 6 hours for wheezing as needed
Bipolar/anxiety/depression
- psych evaluated; stop Seroquel
Marijuana user
Hx of drug abuse
- BCARES following
HX of priapism
DVT ppx: Lovenox
Code: Full
More than 30 minutes spent in discharge including
Final examination of the patient
Summarizing hospital stay
Instructions for continuing care to all relevant caregivers
Preparation of discharge records, prescriptions, and referral forms
Total time spent (in minutes): 41
Anticipated Discharge: Today
Subjective/Interval History
-
Date of Service: August 18, 2023
he feels well no complaints
Objective Data
-
Labs:
Laboratory Results
08/18/23
07:07
WBC 11.4 H
Hgb 9.4 L
Hct 25.4 L
Plt Count 369 D
Sodium Pending
Potassium Pending
Chloride Pending
Carbon Dioxide Pending
BUN Pending
Creatinine Pending
Glucose Pending
Calcium Pending
Total Bilirubin Pending
AST Pending
ALT Pending
Alkaline Phosphatase Pending
Vital Signs:
Vital Signs
Temp Pulse Resp BP Pulse Ox
97.9 F 67 16 135/73 98
08/18/23 07:00 08/18/23 08:29 08/18/23 08:29 08/18/23 07:00 08/18/23 08:29
I&O
08/17/23 08/18/23 08/19/23
06:59 06:59 06:59
Intake Total 4730 / 4730 3440 / 3440
Output Total 2850 / 2850 4675 / 4675
Balance 1880 / 1880 -1235 / -1235
Physical Exam
-
General: No Apparent Distress
HEENT: Normocephalic and Atraumatic
Respiratory: Negative Wheezes or Rales
Cardiac: Regular Rhythm and S1/S2
GI: Soft and Nontender
Genito-urinary: No Costovertebral Tender
Neuro: AO x 3
Hematologic / Lymphatic: No Lymphadenopathy
Psych: Calm
Data Reviewed
-
Total Time Spent with Patient (in minutes): 41
Labs: Labs Reviewed by me
--- NOTE | 2023-08-18 09:59 | W.DS.TRANS ---
DC Summary - Cardiac Nurse Specialist
-
Discharge Instructions:
Discharge Diagnosis/Procedures sickel cell disease, hypoxia from inhalation
into lungs
Diet Regular
Activity As tolerated
Blood Work blood work every 2 weeks - script given
Instructions:
Stand-Alone Forms:
Changes to Home Medications: No
Discharge Medications:
DC Medications w/original date entered in [facility]
loratadine 10 mg tablet 10 mg PO DAILY Allergies 02/05/23
multivitamin (Daily-Suzie tablet) 1 tab PO DAILY Supplement 02/05/23
cyanocobalamin (vitamin B-12) 1,000 mcg tablet 1,000 mcg PO DAILY #100 tabs 08/18/23
folic acid 1 mg tablet 1 mg PO DAILY Supplement #100 tabs 08/18/23
hydroxyurea 500 mg capsule 500 mg PO DAILY Autoimmune Disorder 30 days #30 caps 08/18/23
Home Medication Changes
Pending Results: No
Total time spent discharging patient (in min): 42
[2023-08-18 10:38] LABS: ALT (SGPT) 33 U/L (0-50); AST (SGOT) 53 U/L (17-59); Albumin 3.9 g/dl (3.5-5.0); Alkaline Phosphatase 82 U/L (38-126); Blood Urea Nitrogen 14 mg/dl (9-20); Calcium 9.3 mg/dl (8.4-10.2); Carbon Dioxide 21 mmol/L (22-30); Chloride 107 mmol/L (98-107); Estimated Creatinine Clearance > 125 ml/min; Glucose 87 mg/dl (70-99); LDH 503 U/L (120-246); Potassium 4.2 mmol/L (3.5-5.1); Sodium 135 mmol/L (135-145); Total Bilirubin 6.9 mg/dl (0.2-1.3); Total Protein 7.4 g/dl (6.3-8.2); eGFR > 60.00
[2023-08-18 11:00] VITALS: BP 142/79
[2023-08-18 11:34] VITALS: BP 142/79
[2023-08-18] MEDS: FLUZONE QUAD 2023-2024 SYRINGE 0.5 ML IM (14:34)
[2023-08-18 15:00] VITALS: BP 154/80
--- NOTE | 2023-08-18 15:19 | CM ---
ANNITA met with pt to discuss dc planning.
Pt continues with interest in treatment. Pt was previously connected with [facility] who says they will help to set up services for dc.
ANNITA called [facility] manri[facility] and left voicemail for Zoie requesting a call be made to pt # [phone].
ANNITA to set up lyft for transport to [address] [place] [address]
== END 2023-08-18 16:30 | disposition home or self-care (01) | DRG 896 ==
LOC: 3 WEST ACU 23:05
PROVIDERS: Nurse Practitioner Family; Physician Assistant; ADMITTING PHYSICIAN Hospitalist; ATTENDING PHYSICIAN Internal Medicine; CONSULT PHYSICIAN Internal Medicine Gastroenterology; CONSULT PHYSICIAN Internal Medicine Hematology & Oncology; CONSULT PHYSICIAN Psychiatry & Neurology Psychiatry; EMERGENCY PHYSICIAN Emergency Medicine
PROC: 30233N1 Transfusion of Nonautologous Red Blood Cells into Peripheral Vein, Percutaneous Approach (ICD-10-PCS; 2023-08-16)
PROC: 3E02340 Introduction of Influenza Vaccine into Muscle, Percutaneous Approach (ICD-10-PCS; 2023-08-18)
DX: F18.10 Inhalant abuse, uncomplicated (principal); D57.00 Hb-SS disease with crisis, unspecified; J98.11 Atelectasis; N48.30 Priapism, unspecified; J45.909 Unspecified asthma, uncomplicated; I51.7 Cardiomegaly; F31.9 Bipolar disorder, unspecified; F41.9 Anxiety disorder, unspecified; D53.9 Nutritional anemia, unspecified; F14.10 Cocaine abuse, uncomplicated; R06.89 Other abnormalities of breathing; R09.02 Hypoxemia; F12.10 Cannabis abuse, uncomplicated; D72.829 Elevated white blood cell count, unspecified; R70.1 Abnormal plasma viscosity; Z65.3 Problems related to other legal circumstances; Z87.19 Personal history of other diseases of the digestive system; Z23 Encounter for immunization
CPT/HCPCS: 36430; 71046; 80053; 81003; 81015; 82248; 82375; 82607; 82746; 83010; 83615; 85025; 85045; 86850; 86900; 86901; 86920; 90686; 93005; 99285; G0008; P9016

== ENCOUNTER 2023-08-21 09:33 | Inpatient (IN) | payer OTHER, SELFPAY ==
[2023-08-20] VITALS (12 sets, daily range): BP systolic 104–159; BP diastolic 51–113; BMI 24.9
--- NOTE | 2023-08-20 11:07 | EDRN ---
Dr. Perales in room w/ pt at this time.
--- NOTE | 2023-08-20 11:14 | ED.GENMED ---
History of Present Illness
General
Chief Complaint: Dehydration Symptoms
Source: patient
Exam Limitations: none
Time Seen by Provider: 08/20/23 10:58
Travel History
Have you had any contact with someone who has COVID-19?: No
Do you have any symptoms of coronavirus? Fever > 100 degrees, chills, cough, shortness of breath, sore throat, loss of taste or smell, muscle aches, or headache?: No
History of Present Illness
History of Present Illness:
33-year-old male who has a history of sickle cell disease and substance abuse who presents after he was found by police [place]. Patient states he got wet last night and someone let him into [employer] to try to dry his clothes in the bathroom.
Patient states that he did grab canisters to try to dry his close. Police had reported he was trying to flowers in [place]. Patient was walking out and did not realize he did pay for things. Patient states he did miss his bus back home to
[place]. Patient states he is cold because he has been wet all night but denies any other complaints. He was recently here and admitted for acute chest
Past History
Past History
ED Past Medical History: Asthma and Other (sickle cell, GI bleeding, acute chest)
ED Past Surgical History: None and Other (Adenoids)
Patient has exhibited threatening behavior?: No
PSI?: No
Social History
Tobacco: Non-smoker
Alcohol: None
Drug: None
Personal: Single
Living: with family
Employment: Student
Phy Exam
Physical Exam
Physical Exam:
CONSTITUTIONAL Patient alert and oriented to person, place and time. Well-appearing. Vital signs reviewed.
HEAD atraumatic, normocephalic.
EYES eyelids normal to inspection, Extraocular muscles intact, Conjunctiva normal, Sclera normal.
NECK normal range of motion, Trachea midline, no jugular venous distention.
RESPIRATORY CHEST No respiratory distress noted, Chest expansion equal, Bilateral breath sounds clear.
CARDIOVASCULAR regular rate and rhythm, Heart sounds normal.
ABDOMEN No distention.
BACK normal inspection, no obvious deformities
UPPER EXTREMITY range of motion normal, Motor strength normal, no cyanosis, no edema.
LOWER EXTREMITY range of motion normal, Motor strength normal, no cyanosis, no edema.
NEURO Speech normal, No focal motor deficits, [place] coma scale 15, Memory normal, Cranial Nerves intact to screening exam.
SKIN skin warm, dry, and normal in color.
PSYCHIATRIC patient oriented to person place and time, Normal affect.
Course
Orders/Labs/Results
Orders:
Orders
08/20/23 11:40
Cardiac Monitoring- Treatment ONCE
CR Chest Portable - 1 View Urgent
Comment:
Reason For Exam: fever, sickle cell
Reason Study Needs to be Portable: Patient Unstable
08/20/23 11:41
Acetaminophen [Tylenol] 1,000 mg PO NOW STA
08/20/23 12:05
Blood Culture Q30M
QUANG Source: Blood/Venous
Specimen Description:
08/20/23 12:13
Influenza A+B Rapid Molecular Urgent
[facility]ANG Source: Nasal Swab
Specimen Description:
08/20/23 13:42
Urinalysis Reflex To Culture Urgent
Date Specimen was Collected: 08/20/23
Time Specimen was Collected: 13:33
Urine Drug Abuse Screen Urgent
Date Specimen was Collected: 08/20/23
Time Specimen was Collected: 13:33
Urine Microscopic Reflex Cult Urgent
Urine Culture Urgent
QUANG Source: U
Specimen Description:
Date Specimen was Collected: 08/20/23
Time Specimen was Collected: 13:33
08/20/23 13:55
Complete Blood Count/With Diff Urgent
Comprehensive Metabolic Panel Urgent
Lactic Acid Q4H
Comment: CANCEL 2nd LACTIC ACID IF 1st LACTIC ACID IS LESS THAN 2
Reticulocyte Count Urgent
Blood Culture Q30M
QUANG Source: Blood/Venous
Specimen Description:
08/20/23 14:21
Cefepime HCl [Maxipime] 1,000 mg IV NOW STA
08/20/23 14:38
Vancomycin [Vancocin] 2,000 mg 0.9% Sodium Chloride 500 ml [Nss] 500 ml IV NOW
08/20/23 14:43
Add On- LAB Urgent
Tests Added?: urine drug screen
08/20/23 14:46
COVID-19 Antigen Stat
Source: Nasal Swab
08/20/23 15:12
Admit/Transfer Patient As Directed
Co-Sign Provider:
Level of Care: Observation services
Assign to:: Telemetry
Physician / Group: Giselle
Diagnosis: Fever
Reason for Telemetry: Arrhythmia
Date to Stop Telemetry: 08/23/23
Time to Stop Telemetry: 11:00
08/20/23 15:15
Code Status As Directed
Resuscitation Status: Full Code
08/20/23 15:34
CT Abd/pel W Iv And Oral Contr Urgent
Comment:
Reason For Exam: abdominal pain, fever
Chest PE Study CT [CT Chest Pe Study] Urgent
Comment:
Reason For Exam: tachycardia, hypoxia
Iohexol [Omnipaque] See Protocol PO NOW STA
08/20/23 15:40
HEMATOLOGY CONSULT Routine
Consulting Provider: Jayna Márquez
Was physician already notified: Yes
INFECTIOUS DISEASE CONSULT Routine
Consulting Provider: Evan Watters
Was physician already notified: Yes
08/23/23 11:00
DC Protocol for Telemetry ONCE
Abnormal Lab Results
08/20/23 08/20/23
13:42 13:55
WBC 26.8 H 10^3/uL
(4.8-10.8)
RBC 2.42 L 10^6/uL
(4.70-6.10)
Hgb 8.1 L g/dL
(13.0-18.0)
Hct 21.6 L %
(39.0-52.0)
MCH 33.5 H pg
(27.0-31.0)
MCHC 37.5 H g/dL
(33.0-37.0)
RDW 19.5 H %
(11.5-14.5)
Abs Immat Gran (auto) 0.2 H 10^3/uL
(0-0.05)
Absolute Neuts (auto) 23.5 H 10^3/uL
(1.4-6.5)
Absolute Lymphs (auto) 0.6 L 10^3/uL
(1.2-3.4)
Absolute Monos (auto) 2.4 H 10^3/uL
(0.1-0.6)
Immature Gran % 0.8 H %
(0-0.5)
Neutrophils % 87.7 H %
(42.2-75.2)
Lymphocytes % 2.2 L %
(20.5-51.1)
Retic Count 20.8 H %
(0.4-2.8)
Sodium 129 L mmol/L
(135-145)
Chloride 96 L mmol/L
(98-107)
BUN 26 H mg/dl
(9-20)
Total Bilirubin 9.3 H mg/dl
(0.2-1.3)
AST 144 H U/L
(17-59)
Ur Occult Blood Reflex 3+ A
(Negative)
Leukocyte Esterase Rfl 1+ A
(Negative)
Urine RBC 3-6 A /HPF
(0-2)
Urine WBC (Reflex) 11-15 A /HPF
(0-5)
Urine Bacteria (Reflex) Few A
(Negative)
Urine Albumin (Reflex) 1+ A
(Neg - Trace)
08/20/23 13:55
08/20/23 13:55
Vital Signs
Initial and Last Documented VS:
Initial Vital Signs
Temp Pulse Resp BP Pulse Ox
98.3 F 103 16 159/100 98
08/20/23 10:48 08/20/23 10:48 08/20/23 10:48 08/20/23 10:48 08/20/23 10:48
Last Documented Vital Signs
Temp Pulse Resp BP Pulse Ox
102.9 F H 105 26 105/51 86
08/20/23 13:55 08/20/23 14:45 08/20/23 14:45 08/20/23 14:00 08/20/23 14:45
MDM/Problems Addressed
MDM/Problems Addressed:
Chronic sickle cell disease
*Radiology
Radiology exam reviewed: radiology read reviewed
*Pulse Oximetry
Patient hypoxic: no
*Bariatric Program Coordinator Interpretation
Rate: tachycardiac
Interpretation: abnormal
Rhythm: sinus
*Critical Care Note
Total Time (30-74mins, 75-104mins- exclusive of procedures): 55 minutes
Data Reviewed
Source: patient
Further Testing Considered But Not Given:
Consider labs the patient does not have any sickle cell symptoms. Afebrile. Not hypoxic
Patient Management
Escalation/DeEscalation of care consider admission/obs:
Patient offers no current complaints that are medical in nature. He was brought here because police offered him an ultimatum of going to long term evaluation. The patient is well-appearing and his vital signs are normal. Okay for discharge. While
the patient reports that he did not flowers and he is not hypoxic, he does have a history of it and it is likely he was huffing.
Update Note
Update Note:
Just prior to discharge repeat vitals were obtained showing a temperature of 103.1. Labs were obtained. He has a leukocytosis of 26,000. Unclear source but given the fact that he has a history of sickle cell anemia and functionally asplenic,
cover with antibiotics. Admit. Blood culture sent.
ED Attending Note
-
Portions of this chart may have been created with voice recognition software.� Occasional wrong word or��sound alike� substitutions may have occurred due to the inherent limitations of voice recognition software.
Discharge Plan
Departure
Patient Disposition: Admit
Date of Disposition: 08/20/23
Time of Disposition: 14:23
Admit to: Telemetry
Presentation/result/management discussed w/ accepting MD/DO: Hospitalist
Patient with high blood pressure during this ER visit?: Yes
Discharge Problem:
Substance abuse, Sickle cell anemia, Fever, r/o bacteremia, Acute hyponatremia
Interventions
Interventions:
*Risk Screen - Suicide Last Done: 08/20/23 12:20
*General Assessment Last Done: 08/20/23 12:20
*Neglect/Abuse Screening Last Done: 08/20/23 12:20
ED- Fall Risk Assessment Last Done: 08/20/23 11:26
*ED COVID-19 Vaccine History Last Done: 08/20/23 10:48
ED- Cardiac Assessment Last Done: 08/20/23 12:20
ED- Neurological Assessment Last Done: 08/20/23 12:20
ED- Pulmonary Assessment Last Done: 08/20/23 12:20
--- NOTE | 2023-08-20 11:17 | EDRN ---
Pt administered apple juice that he requested from Dr. Perales and VS were requested though pt declined. Pt requested that we dry his clothes. This RN informed pt no capability of drying his clothes but we could offer him some paper scrubs. Pt
declined. Pt was asked when this RN could return for repeat vital signs and pt stated in a bit and added, I'm too comfortable now.'
--- NOTE | 2023-08-20 11:42 | EDRN ---
Pt is refusing IV access, labs, and vital signs at this time, using multiple d4elay tactics.
--- NOTE | 2023-08-20 12:08 | EDRN ---
Unable to obtain IV access w/ IV/VAT RN paged. Pt's POX 78-88% on RA. Pt refusing oxygen stating, 'that's my sickle cell disease.'
--- NOTE | 2023-08-20 12:19 | EDRN ---
Portable CXR at this time.
--- NOTE | 2023-08-20 12:21 | EDRN ---
Pt refused compliance monitor so far.
[2023-08-20] MEDS: TYLENOL 1000 MG PO (12:35)
--- NOTE | 2023-08-20 12:40 | EDRN ---
Called out for phlebotomy for bloods. SERVICE DELIVERY SUPERVISOR able to get IV access but no bloods.
[2023-08-20 13:58] LABS: Urine Albumin 1+ (Neg - Trace); Urine Bilirubin Negative (Negative); Urine Character Clear (Clear); Urine Color Yellow; Urine Glucose Negative (Negative); Urine Ketone Negative (Negative); Urine Leukocyte 1+ (Negative); Urine Nitrite Negative (Negative); Urine Occult Blood 3+ (Negative); Urine Urobilinogen 1+ (Neg - 1+); Urine pH 6.5 (5.0-9.0)
--- NOTE | 2023-08-20 14:01 | EDRN ---
Pt pulled off ID band so attached to door at this time.
--- NOTE | 2023-08-20 14:01 | EDRN ---
Pt is continuously asking for fluids to drink. Pt now asking for hot meal. This RN offered a boxed lunch but pt is insisting on a hot meal which is not available w/out admission orders.
[2023-08-20 14:04] LABS: % Basophils 0.3 % (0-2); % Eosinophils 0.1 % (0-6); % Immature Granulocytes 0.8 % (0-0.5); % Lymphocytes 2.2 % (20.5-51.1); % Monocytes 8.9 % (1.7-9.3); % Neutrophils 87.7 % (42.2-75.2); Absolute Basophils 0.1 10^3/uL (0-0.2); Absolute Immature Granulocytes 0.2 10^3/uL (0-0.05); Absolute Lymphocytes 0.6 10^3/uL (1.2-3.4); Absolute Monocytes 2.4 10^3/uL (0.1-0.6); Absolute Neutrophils 23.5 10^3/uL (1.4-6.5); Hematocrit 21.6 % (39.0-52.0); Hemoglobin 8.1 g/dL (13.0-18.0); Mean Corp Hgb Conc. 37.5 g/dL (33.0-37.0); Mean Corpuscular Hgb 33.5 pg (27.0-31.0); Mean Corpuscular Volume 89.3 fL (80.0-94.0); Mean Platelet Volume 8.7 fL (7.4-10.4); Nucleated Red Blood Cells % 0.4 % (-); Platelet Count 308 10^3/uL (130-400); Red Blood Cell Count 2.42 10^6/uL (4.70-6.10); Red Cell Dist. Width 19.5 % (11.5-14.5); Reticulocyte Count 20.8 % (0.4-2.8); White Blood Cell Count 26.8 10^3/uL (4.8-10.8)
[2023-08-20 14:15] LABS: Lactic Acid 0.9 mmol/L (0.7-2.0)
[2023-08-20 14:20] LABS: ALT (SGPT) 47 U/L (0-50); AST (SGOT) 144 U/L (17-59); Albumin 4.5 g/dl (3.5-5.0); Alkaline Phosphatase 87 U/L (38-126); Blood Urea Nitrogen 26 mg/dl (9-20); Calcium 8.8 mg/dl (8.4-10.2); Carbon Dioxide 22 mmol/L (22-30); Chloride 96 mmol/L (98-107); Estimated Creatinine Clearance 102 ml/min; Glucose 98 mg/dl (70-99); Potassium 4.8 mmol/L (3.5-5.1); Sodium 129 mmol/L (135-145); Total Bilirubin 9.3 mg/dl (0.2-1.3); Total Protein 7.9 g/dl (6.3-8.2); eGFR > 60.00
[2023-08-20 14:37] LABS: Normal RBC Morphology No
[2023-08-20 14:38] LABS: Acanthocytes 1+; Anisocytosis 1+; Hypochromasia 1+; Ovalocytes 2+; Polychromasia 1+; Sickled Red Blood Cells 1+; Target Cells 1+
--- NOTE | 2023-08-20 14:45 | EDRN ---
Nelly charge loader RN was in to speak w/ pt about a hot meal as well. Pt has settled down and is still refusing a boxed lunch
[2023-08-20 14:57] LABS: Urine Bacteria Few (Negative)
[2023-08-20 15:08] LABS: COVID-19 Antigen Negative (Negative)
--- NOTE | 2023-08-20 15:41 | HPS.HSE ---
Addendum entered and electronically signed by Digna Desai MD 08/20/23 15:49:
see update note for addendum
Original Note:
Family Physician
-
Family Physician: * NONE
Chief Complaint
-
Fever
History of Present Illness
Patient is a 33 y/o male past medical history of asthma, sickel cell disease, and bipolar disorder who presents with fever. Patient was initially brought in by police after he was reportedly huffing in [facility]. Patient was intially set for
discharge, but repeat vital signs revealed fever of 103F. Patient reports he did have some vomiting this morning, but he denies feeling nauseous at the present time and he asking for food. He initially denied abdominal pain, but now reports some
epigastric pain. He denies diarrhea. He denies chest pain, cough or shortness of breath.
Medical History
Past Medical History
Past Medical History: Reports Other
Additional Past Medical History:
Sickle Cell Disease
Asthma
Bipolar Disorder
Past Surgical History: Reports None
Social History
Tobacco: Non-smoker
Drug: Marijuana and Other (Patient admits to meth usage as well as other drugs, but denies any IV drug usage)
Family History
Family History: Not pertinent
Allergies / Home Medications
Allergies reflects when Allergies were last updated in [facility].
Home Medications with original date entered in [facility]
Allergy/Medication List:
Allergies
Allergy/AdvReac Type Severity Reaction Status Date / Time
[place] And Derivatives Allergy Unknown Verified 08/20/23 10:51
Home Medications
loratadine 10 mg tablet 10 mg PO DAILY Allergies 02/05/23
multivitamin (Daily-Suzie tablet) 1 tab PO DAILY Supplement 02/05/23
folic acid 1 mg tablet 1 mg PO DAILY Supplement #100 tabs 08/18/23
cyanocobalamin (vitamin B-12) 1,000 mcg tablet 1,000 mcg PO DAILY Supplement 08/20/23
hydroxyurea 500 mg capsule 500 mg PO DAILY sickle cell disease 08/20/23
Review of Systems
-
A 12 point ROS was completed and negative except as noted: Yes
Constitutional: Reports Fever and Chills
Respiratory: Denies Cough or Trouble Breathing
Cardiac: Denies Chest Pain, Palpitations or Syncope
Abdomen/GI: Reports See HPI
: Denies Dysuria or Frequency
Physical Exam
Vital Signs
Vital Signs
Temp Pulse Resp BP Pulse Ox
102.9 F H 105 26 105/51 86
08/20/23 13:55 08/20/23 14:45 08/20/23 14:45 08/20/23 14:00 08/20/23 14:45
Physical Exam
General: Comfortable and Conversant
HEENT: Anicteric and Moist mucous membranes
Respiratory: Clear and Non Labored Respirations
Cardiac: S1/S2, Regular Rhythm and Tachycardia; No Murmur
GI: Soft, Non Tender and Non Distended
Rectal: Deferred by Provider
Musculoskeletal: No Clubbing, No Cyanosis and No Edema
Skin: Warm and Dry; No Rash
Neuro: Awake, Alert, Oriented and Nonfocal/grossly intact
Laboratory Results
-
08/20/23 13:55
08/20/23 13:55
Laboratory Results
Lactic Acid Cancelled 08/20/23 15:45
Total Bilirubin 9.3 mg/dl (0.2-1.3) H 08/20/23 13:55
AST 144 U/L (17-59) H 08/20/23 13:55
ALT 47 U/L (0-50) 08/20/23 13:55
Alkaline Phosphatase 87 U/L (38-126) 08/20/23 13:55
Data Reviewed
-
Diagnostic Radiology: Report Reviewed by me
Lab Data: Labs Reviewed by me
Old Records: Reviewed
Impression/Plan
-
SIRS, source of infection remains in unclear
-COVID and Influenza swabs are negative
-Chest X-ray negative
-Await blood and urine cultures
-Check Chest CT for PE , and Abd/Pelvis CT
-Continue empiric antibiotics with Vancomycin and Cefepime
-Consult Infectious Disease
Sickle Cell Disease
-Continue hydroxyurea
-Monitor retic count and LDH
-Consult Hematology
Marijuana User
Hx Drug Abuse
DVT proph: SCDs
Code Status: Full Code
--- NOTE | 2023-08-20 15:50 | W.PN.UPDATE ---
Update Note
Progress Note Update
I saw and examined the patient.
The PA's Denia's note was reviewed and I agree with the note.
Comment: 33 y/o M hx of sickle cell disease, recently admitted w dc 48 hours ago presents back to after [facility]. He was reportedly huffing inhalants similar to previous admission. He was arranged for DC but
endorsed epigastric pain, vomiting and found to have fever 103. He denies any SOB or chest pain. No rashes, skin lesions. Denies drug abuse or injections.
He was admitted 08/14 to 08/17; during that admission - he presented again after being found in the parking lot and huffing inhalants. he was briefly hypoxic and weaned off O2. Hematology supportively managed his sickle disease.
Physical Exam
General: Comfortable and Conversant
HEENT: Anicteric and Moist mucous membranes
Respiratory: Clear and Non Labored Respirations
Cardiac: S1/S2, Regular Rhythm and Tachycardia; No Murmur
GI: Soft, Non Tender and Non Distended
Rectal: Deferred by Provider
Musculoskeletal: No Clubbing, No Cyanosis and No Edema
Skin: Warm and Dry; No Rash
Neuro: Awake, Alert, Oriented and Nonfocal/grossly intact
Assessment:
SIRS, source of infection remains in unclear
- COVID and Influenza swabs are negative
- Chest X-ray negative
- Await blood and urine cultures
- Check Chest CT for PE given hx of sickle cell disease, and Abd/Pelvis CT with vomiting, epigastric pain, and elevated AST
- elevated Bili likely indirect, will confirm
- Continue empiric antibiotics with Vancomycin and Cefepime
- Consult Infectious Disease
Sickle Cell Disease
- Hb 8.1, previously 9.4
- continue IVF
- Continue hydroxyurea
- Monitor retic count and LDH
- Consult Hematology
Hyponatremia
- IVF
Marijuana User
Hx Drug Abuse
DVT proph: SCDs
Code Status: Full Code
[2023-08-20 15:55] LABS: Amphetamines Negative (Negative); Barbiturates Negative (Negative); Benzodiazepines Negative (Negative); Buprenorphine Negative (Negative); Cocaine Negative (Negative); Marijuana Negative (Negative); Methadone Negative (Negative); Methamphetamines Negative (Negative); Opiates Negative (Negative); Phencyclidine Negative (Negative); Tricyclic Antidepressants Negative (Negative)
[2023-08-20] MEDS: OMNIPAQUE 50 ML PO (16:25)
--- NOTE | 2023-08-20 16:25 | CON.ID ---
Consultation
-
Date/Time Consultation Requested: 08/20/19 15:40
Date/Time Consultation Performed: 08/20/19 15:25
Requesting Provider: Suresh
Performing Provider: Dr Mccabe
Reason for Consultation: fever
Chief Complaint / Past History
Chief Complaint
fever
History of Present Illness
Mr Albert is a 33 year old male with history of sickel cell disease, asthma, biopolar disorder presenting here for fever to 103, nausea vomiting. He was mohsen in by police after found huffing in [facility]. Since arrival reporting epigastric
pain. No sinus pain, sore through, cough, sputum production, chest pain, shortness of breath, diarrhea, dyrusia, genital ulcers/drips, new rashes or new joint pains. No tick bites. Has housing.
Since arrival here febrile to 103, bp stable, wbc 26, hgb 8.1 yesterday 9.4, plt 308, L shift is noted, cr 1.0, t bili 9.3, ast 144, alt 7, alk phos 87, UDS negative, covid ag neg, CXR no consolidation, blood culture x2 no growth to date, urine
culture pending, ua 11-15 wbc/hpf, currently on vanc and cefepime. ID is consulted for assistance with management.
Past History
Additional Past Medical History:
as per hpi
Additional Past Surgical History:
None
Allergy History:
[place] And Derivatives Allergy (Verified 08/20/23 10:51)
Unknown
Medications Reviewed: Yes
Social History
Tobacco: Non-Smoker
Drug: Other (polypharmacy - denies IVDU)
Family History
Family History: Not Pertinent
Review of Systems
Review of Systems
General: Fever and Chills
All systems: All other systems were reviewed and were negative
Vital Signs
Temp Pulse Resp BP Pulse Ox
102.9 F H 105 26 105/51 86
08/20/23 13:55 08/20/23 14:45 08/20/23 14:45 08/20/23 14:00 08/20/23 14:45
Physical Exam
Physical Exam
Constitutional: No Acute Distress
Cardiovascular: Regular Rate and S1/S2; Negative Murmur or Rub
Pulmonary: Clear and Symmetric; Negative Wheezes, Rales or Rhonchi
Gastrointestinal: Soft, Tender (minimal epigastric, no RUQ tenderness), Non Distended and Normal Bowel Sounds
Skin: Warm and Dry; Negative Rash or Jaundice
Neurological: Awake
Lab / Diagnostic Study Results
08/20/23 13:55
08/20/23 13:55
Abs Immat Gran (auto) 0.2 10^3/uL (0-0.05) H 08/20/23 13:55
Absolute Neuts (auto) 23.5 10^3/uL (1.4-6.5) H 08/20/23 13:55
Absolute Lymphs (auto) 0.6 10^3/uL (1.2-3.4) L 08/20/23 13:55
Absolute Monos (auto) 2.4 10^3/uL (0.1-0.6) H 08/20/23 13:55
Absolute Basos (auto) 0.1 10^3/uL (0-0.2) 08/20/23 13:55
Immature Gran % 0.8 % (0-0.5) H 08/20/23 13:55
Neutrophils % 87.7 % (42.2-75.2) H 08/20/23 13:55
Lymphocytes % 2.2 % (20.5-51.1) L 08/20/23 13:55
Monocytes % 8.9 % (1.7-9.3) 08/20/23 13:55
Eosinophils % 0.1 % (0-6) 08/20/23 13:55
Basophils % 0.3 % (0-2) 08/20/23 13:55
Lactic Acid Cancelled 08/20/23 15:45
Ur Squamous Epith Cells 3-5 /LPF (Few) 08/20/23 13:42
Microbiology Results
Micro:
08/20/23 13:42 Urine Culture - Pending
Urine
08/20/23 13:55 Blood Culture - Pending
Blood/Venous
08/20/23 12:13 Influenza Types A & B (YANCI) - Final
Nasal Swab Negative for Influenza A & B, NAAT
Negative results must be combined with clinical observations
and patient history.
Nucleic Acid Amplification test (NAAT)performed on the
[employer] platform.
08/20/23 12:05 Blood Culture - Pending
Blood/Venous
Assessment / Plan
Fever
Sickle Cell Disorder
Polysubstance abuse - denies IVDU
- bloood cultures x2 in progress
- urine culture in progress
- CXR today no infiltrates - repeat two views in AM
- covid ag neg
- agree with vanc/cefepime - add doxycycline pending repeat CXR - follow clinically
[2023-08-20] MEDS: MAXIPIME 1000 MG IV (16:26)
[2023-08-20] MEDS: VANCOCIN 540 MG IV (16:35)
--- NOTE | 2023-08-20 18:40 | PTCARENOTE ---
pt admitted from ED. AO x3 denies pain LCTA on RA. RRR. abd soft NT pt reports last BM 2 days ago. cont b&B. skin CDI no edema +pp B/L
--- NOTE | 2023-08-20 18:47 | PTCARENOTE ---
pharmacy notified pt arrived with full bag of Vacocin 2G IV bag not infused, appeared scanned in ED. Per ED staff, could not find pump.
--- NOTE | 2023-08-20 18:57 | PHA.VAN.IN ---
Assessment
- Assessment
Renal Function: Appears elevated from baseline (08/17/23 BASELINE SCR: 0.7)
Concomitant Antimicrobials: CEFEPIME/DOXYCYCLINE
- Previous Dosing Experience
Previous Regimen: NONE
AUC Dosing Plan
- Dosing Variables
Dosing Weight (kg): 74.3
Dosing CrCl (ml/min): 102
Vd coefficient (L/kg): 0.7
- Empiric Dosing
Initial / Loading Dose: 2GM
Maintenance Regimen: 750MG IV Q8H
Estimated AUC (mcg*h/mL): 507
Estimated Peak (mcg*h/mL): 28.3
Estimated Trough (mcg/ml): 15.2
Estimated Half Life (H): 7.8
Pharmacokinetics Vancomycin I
- -
Patient Age: 33
Patient Sex: Male
Vancomycin Day #: 1
Indication: Other (SICKLE CELL DS)
Requesting Provider: SUREKHA
Height / Weight:
Height 5 ft 8 in
Actual Weight 74.3 kg
Pertinent Past Medical History: POLYSUBSTANCE ABUSE
- Vital Signs / Lab Results
Temp Pulse Resp BP Pulse Ox
99.8 F 96 18 125/73 97
08/20/23 17:58 08/20/23 17:58 08/20/23 17:58 08/20/23 17:58 08/20/23 17:58
Lab Results - Hematology
08/20/23
13:55
WBC 26.8 H
Lab Results - Chemistry
08/20/23
13:55
BUN 26 H
Creatinine 1.0
Estimated Creat Clear 102
Albumin 4.5
08/20/23 08/20/23
13:55 15:45
Lactic Acid 0.9 Cancelled
Lab Results - Urine
08/20/23
13:42
Urine Nitrite (Reflex) Negative
Leukocyte Esterase Rfl 1+ A
Urine WBC (Reflex) 11-15 A
Ur Squamous Epith Cells 3-5
Urine Bacteria (Reflex) Few A
Microbiology Results
08/20/23 12:13 Influenza Types A & B (YANCI) - Final
Nasal Swab Negative for Influenza A & B, NAAT
Negative results must be combined with clinical observations
and patient history.
Nucleic Acid Amplification test (NAAT)performed on the
[employer] platform.
[2023-08-20] MEDS: NSS 1000 IV (20:53)
[2023-08-20] MEDS: VIBRAMYCIN 100 MG PO (20:55)
[2023-08-20] MEDS: TYLENOL 650 MG PO (22:58)
[2023-08-21] MEDS: STERILE WATER FOR INJECTION 10 ML IV ×4 (00:25→23:12)
[2023-08-21] MEDS: MAXIPIME 2000 MG IV ×4 (00:25→23:12)
[2023-08-21 03:25] VITALS: BP 104/57
[2023-08-21] MEDS: NSS 1000 IV ×2 (05:58→17:21)
[2023-08-21] MEDS: VANCOCIN 150 IV (05:59)
[2023-08-21 06:00] VITALS: BMI 23.3
[2023-08-21 06:13] LABS: ALT (SGPT) 64 U/L (0-50); AST (SGOT) 207 U/L (17-59); Alkaline Phosphatase 94 U/L (38-126); Blood Urea Nitrogen 25 mg/dl (9-20); Calcium 8.7 mg/dl (8.4-10.2); Carbon Dioxide 22 mmol/L (22-30); Chloride 103 mmol/L (98-107); Estimated Creatinine Clearance 102 ml/min; Glucose 92 mg/dl (70-99); Potassium 4.5 mmol/L (3.5-5.1); Sodium 131 mmol/L (135-145); Total Bilirubin 8.6 mg/dl (0.2-1.3); Total Protein 7.7 g/dl (6.3-8.2); eGFR > 60.00
[2023-08-21 06:25] LABS: LDH 1598 U/L (120-246)
[2023-08-21 06:55] LABS: Hematocrit 22.1 % (39.0-52.0); Hemoglobin 8.1 g/dL (13.0-18.0); Mean Corp Hgb Conc. 36.7 g/dL (33.0-37.0); Mean Corpuscular Hgb 33.8 pg (27.0-31.0); Mean Corpuscular Volume 92.1 fL (80.0-94.0); Platelet Count 233 10^3/uL (130-400); Red Cell Dist. Width 20.4 % (11.5-14.5); Reticulocyte Count 16.3 % (0.4-2.8); White Blood Cell Count 20.1 10^3/uL (4.8-10.8)
[2023-08-21 07:35] VITALS: BP 113/66
[2023-08-21] MEDS: CLARITIN 10 MG PO (08:15)
[2023-08-21] MEDS: HYDREA 500 MG PO (08:15)
[2023-08-21] MEDS: FOLVITE 1 MG PO (08:15)
[2023-08-21] MEDS: VIBRAMYCIN 100 MG PO ×2 (08:15→19:25)
[2023-08-21 08:20] LABS: Direct Bilirubin 1.7 mg/dl (0.0-0.4)
--- NOTE | 2023-08-21 08:24 | CON.ONC ---
Addendum entered and electronically signed by Miriam Page MD 08/21/23 13:27:
Patient seen and examined, agree w/ DAKOTA A&P as below
33 yo M w/ sickle cell disease, admitted with fever. Started on broad spectrum antibiotics, cultures pending.
Tmax 103 in ER, 100.6 early this am. No focal complaints, only had shaking chills at time of presentation.
CT CAP showed diffuse bladder wall thickening, mild hepatomegaly, gallstones, diffuse osseous changes c/w sickle cell disease.
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
MRCP has been ordered by GI
Continue Hydrea
Monitor CBC
OOB, oral hydration - no significant sickle pain
Will follow along.
Original Note:
Impression
Impression
Hemolytic anemia
Sickle cell disease
Reticulocytosis
Leukocytosis
Fever of unknown origin
Nausea/vomiting/abdominal pain
Transaminitis
Cholelithiasis with gallstones on imaging
Hepatomegaly
Polysubstance abuse
Inhalant abuse
Possible urinary tract infection
Plan
Plan
08/20 WBC 20.1, Hgb 8.1, Hct 22.1, PLT 233
Transfuse as needed to maintain Hgb >7
Monitor CBC with diff daily, follow reticulocyte count
ID following
Await blood cultures and urine culture
Continue Hydrea
GI consult - MRI/MRCP
Symptom management and supportive care
Cessation of huffing encouraged
We will follow.
Patient History
History of Present Illness
Jules Davis is a 33 year old male recently admitted for sickle cell crisis and acute lung injury following inhalant abuse. He was discharged 08/17 from and returned yesterday 08/19 via police. He was found huffing inhalants at the [facility] in
[place]. He had reported his clothes had been wet and he was trying to dry off. He reported nausea, vomiting, and epigastric pain for a few days. He was found to have 103 fever in . He has been admitted for further workup. He was recently
incarcerated at [facility] and released 3 months ago. He remains on probation until the end of 2023.
Past-Medical/Surgical History
Asthma
Sickle cell disease (Hydrea)
Bipolar disorder
Polysubstance abuse
Recurrent priapism
Hx GI bleed
Adenoidectomy
Patient Medication
�Medication �Instructions �Recorded �Confirmed �Last Taken �Type
loratadine 10 mg tablet 10 mg PO DAILY Allergies 02/05/23 08/20/23 08/18/23 History
multivitamin (Daily-Suzie tablet) 1 tab PO DAILY Supplement 02/05/23 08/20/23 08/18/23 History
folic acid 1 mg tablet 1 mg PO DAILY Supplement #100 tabs 08/18/23 08/20/23 08/18/23 Rx
cyanocobalamin (vitamin B-12) 1,000 mcg PO DAILY Supplement 08/20/23 08/20/23 08/18/23 History
1,000 mcg tablet
hydroxyurea 500 mg capsule 500 mg PO DAILY sickle cell disease 08/20/23 08/20/23 08/18/23 History
Active Medications
Generic Name Dose Route Start Last Admin
Trade Name Freq PRN Reason Stop Dose Admin
Acetaminophen 650 mg 08/20/23 18:04 08/20/23 22:58
Acetaminophen 325 Mg Tablet PO 09/17/23 18:03 650 mg
Q4HPRN PRN Administration
mild pain/ fever>100.5F
Cefepime HCl 2,000 mg 08/21/23 00:00 08/21/23 08:14
Cefepime Hcl 2,000 Mg/12.5 Ml Vial IV 2,000 mg
Q8H ROBERTO Administration
Cyanocobalamin 1,000 mcg 08/21/23 08:00
Cyanocobalamin 1,000 Mcg Tablet PO 09/18/23 07:59
DAILY ROBERTO
Doxycycline Hyclate 100 mg 08/20/23 20:00 08/21/23 08:15
Doxycycline 100 Mg Capsule PO 100 mg
Q12 ROBERTO Administration
Folic Acid 1 mg 08/21/23 08:00 08/21/23 08:15
Folic Acid 1 Mg Tablet PO 09/18/23 07:59 1 mg
DAILY ROBERTO Administration
Hydroxyurea 500 mg 08/21/23 08:00 08/21/23 08:15
Hydroxyurea 500 Mg Capsule PO 09/18/23 07:59 500 mg
DAILY ROBERTO Administration
Sodium Chloride 1,000 mls @ 100 mls/hr 08/20/23 18:04 08/21/23 05:58
Nss IV 1,000 mls
.Q10H ROBERTO Administration
Vancomycin HCl 750 mg in 150 mls @ 150 mls/hr 08/21/23 06:00 08/21/23 05:59
Vancocin IV 150 mls
Q8H ROBERTO Administration
Protocol
Loratadine 10 mg 08/21/23 08:00 08/21/23 08:15
Loratadine 10 Mg Tablet PO 09/18/23 07:59 10 mg
DAILY ROBERTO Administration
Multivitamins Therapeutic 1 tablet 08/21/23 08:00
Multivitamin Tablet PO 09/18/23 07:59
DAILY ROBERTO
Sodium Chloride 0 flush 08/20/23 19:00
Sodium Chloride 0.9% (Flush) Syringe IV 09/17/23 18:59
PER PROTOCOL ROBERTO
Sterile Water 10 ml 08/21/23 00:00 08/21/23 08:14
Sterile Water For Injection 10 Ml Vial IV 09/18/23 00:00 10 ml
Q8H ROBERTO Administration
Review of Systems
-
History Source: Patient, Ambulance Crew, Physician, Coordinated Provider and Records
Constitutional: Reports No Symptoms
EENT: Reports No Symptoms
Respiratory: Reports No Symptoms
Cardiac: Reports No Symptoms
GI: Reports Abdominal Pain
Breast: Reports N/A
: Reports Frequency
Musculoskeletal: Reports No Symptoms
Skin: Reports No Symptoms
Neuro: Reports No Symptoms
Endocrine: Reports No Symptoms
Hematologic/Lymphatic: Reports No Symptoms
Allergy / Immunology: Reports No Symptoms
Psych: Reports No Symptoms
Physical Exam
-
Patient is in the bathroom washing up at the sink. He denies pain, nausea, vomiting. Denies fevers overnight.
General: Well Developed, Well Nourished, Comfortable and Conversant
Cardiology: S1, S2 and Other (tachy at times)
Pulmonary: Clear and Other (room air)
GI: Normal Bowel Sounds and Distended (mildly distended )
Musculoskeletal: No Edema and Normal Gait & Station
Neurology: Non Focal
Skin: Warm and Dry
Psych: Calm
Labs
Lab Results
WBC 20.1 10^3/uL (4.8-10.8) H 08/21/23 05:17
RBC 2.40 10^6/uL (4.70-6.10) L 08/21/23 05:17
Hgb 8.1 g/dL (13.0-18.0) L 08/21/23 05:17
Hct 22.1 % (39.0-52.0) L 08/21/23 05:17
MCV 92.1 fL (80.0-94.0) 08/21/23 05:17
MCH 33.8 pg (27.0-31.0) H 08/21/23 05:17
MCHC 36.7 g/dL (33.0-37.0) 08/21/23 05:17
RDW 20.4 % (11.5-14.5) H 08/21/23 05:17
Plt Count 233 10^3/uL (130-400) D 08/21/23 05:17
MPV 10.0 fL (7.4-10.4) 08/21/23 05:17
Abs Immat Gran (auto) 0.2 10^3/uL (0-0.05) H 08/20/23 13:55
Absolute Neuts (auto) 23.5 10^3/uL (1.4-6.5) H 08/20/23 13:55
Absolute Lymphs (auto) 0.6 10^3/uL (1.2-3.4) L 08/20/23 13:55
Absolute Monos (auto) 2.4 10^3/uL (0.1-0.6) H 08/20/23 13:55
Absolute Eos (auto) 0.0 10^3/uL (0-0.7) 08/20/23 13:55
Absolute Basos (auto) 0.1 10^3/uL (0-0.2) 08/20/23 13:55
Immature Gran % 0.8 % (0-0.5) H 08/20/23 13:55
Neutrophils % 87.7 % (42.2-75.2) H 08/20/23 13:55
Lymphocytes % 2.2 % (20.5-51.1) L 08/20/23 13:55
Monocytes % 8.9 % (1.7-9.3) 08/20/23 13:55
Eosinophils % 0.1 % (0-6) 08/20/23 13:55
Basophils % 0.3 % (0-2) 08/20/23 13:55
Creatinine 1.0 mg/dL (0.7-1.3) 08/21/23 05:17
Vital Signs
Vital Signs
Temp Pulse Resp BP Pulse Ox
99.8 F 90 17 113/66 91
08/21/23 07:35 08/21/23 07:35 08/21/23 07:35 08/21/23 07:35 08/21/23 07:35
08/20/23 CT abdomen/pelvis: Mild cardiomegaly. Mild subsegmental atelectasis/scarring in both lower lungs. Mild diffuse osseous sclerosis.Mild diffuse thickening of the urinary bladder wall suspicious for ACUTE CYSTITIS. Cholelithiasis. Mild
hepatomegaly. Chronic autoinfarction of the spleen. Diffuse osseous sclerosis consistent with SICKLE CELL DISEASE.
08/20/23 CXR: Hypoaerated lungs without consolidation
--- NOTE | 2023-08-21 08:36 | PHA.VAN.FU ---
Vancomycin Assessment / Plan
- Assessment
Renal Function: Stable
WBC's are: Trending Down
In the past 24 hrs, patient has been: Febrile
Concomitant Antimicrobials: cefepime
- Dosing Plan
Adjust Regimen to: Vanc 1000mg Q12H since SCR increased slightly from baseline
New Regimen Predicts: AUC (482), Peak (31.3), Trough (11.8)
- Monitoring Plan
No level(s) ordered at this time: consider levels in next few days
- Follow Up
Pharmacy will continue to follow.
Vancomycin Follow UP
- -
Patient Age: 33
Patient Sex: Male
Vancomycin Day #: 2
Indication: Other
Requesting Provider: Miles Prince / Eliot
Pertinent Antimicrobial Allergies:
no pertinent antibiotic allergies
Height / Weight:
Height 5 ft 8 in
Actual Weight 69.513 kg
Pertinent Past Medical History: Sickle cell, BRITTA
- Vital Signs / Lab Results
Temp Pulse Resp BP Pulse Ox
99.8 F 90 17 113/66 91
08/21/23 07:35 08/21/23 07:35 08/21/23 07:35 08/21/23 07:35 08/21/23 07:35
Lab Results - Hematology
08/20/23 08/21/23
13:55 05:17
WBC 26.8 H 20.1 H
Lab Results - Chemistry
08/20/23 08/21/23
13:55 05:17
BUN 26 H 25 H
Creatinine 1.0 1.0
Estimated Creat Clear 102 102
Albumin 4.5 4.0
08/20/23 08/20/23
13:55 15:45
Lactic Acid 0.9 Cancelled
Lab Results - Urine
08/20/23
13:42
Urine Nitrite (Reflex) Negative
Leukocyte Esterase Rfl 1+ A
Ur Squamous Epith Cells 3-5
Microbiology Results
08/20/23 12:13 Influenza Types A & B (YANCI) - Final
Nasal Swab Negative for Influenza A & B, NAAT
Negative results must be combined with clinical observations
and patient history.
Nucleic Acid Amplification test (NAAT)performed on the
[employer] platform.
--- NOTE | 2023-08-21 08:52 | W.PN.HOSP.TC ---
Today's Communication/Plan
-
continue IVF
continue IV Abx; follow ID recs
GI consult
PPI
trend LFTs
consider MRI
Follow hematology recs
Assessment / Plan
Assessment / Plan
Assessment:
Sepsis POA (fever, leukocytosis, possible UTI vs other)
- COVID and Influenza swabs are negative
- Chest X-ray negative
- CT Chest: no PE, no consolidation, subsegmental atelectasis or scarring in the inferior aspect of the right middle lobe and in the basilar segments of the lower lobes of both lungs
- CT A/P: large amount of cholelithiasis in the gallbladder lumen. bands of scarring adjacent to the tail the pancreas in the expected location of the spleen consistent with chronic autoinfarction of the spleen. Otherwise negative. Moderate amount
of fecal material in the sigmoid colon and rectum which are mildly distended. There is no abnormal colonic or rectal wall thickening.
- follow cultures
- continue Vanco/Cefepime/Doxy as per ID
Nausea/vomiting/abdominal pain
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
Mostly indirect bilirubinemia from sickle disease
- direct bili 1.7
- CT without acute findings
- consider MRI/MRCP to definitely exclude hepatobiliary involvement
- consult GI
- add PPI
- trend LFTs
Recurrent Inhalant abuse
- CT without acute findings
- no SOB or hypoxia
- counselled on strict cessation
Sickle Cell Disease
- Hb 8.1
- continue IVF
- Continue hydroxyurea
- Monitor retic count and LDH
- Hematology following
- repeat CBC in 2 weeks while on Hydrea
- continue Hydrea/Folic acid/B12 at discharge
- OP Hematology f/u info given
Hyponatremia
- IVF
Marijuana user
Hx of drug abuse
- [facility] arranged IOP last admission
History of mild asthma
- Not on treatment
- DuoNebs every 6 hours for wheezing as needed
Bipolar/anxiety/depression
- psych evaluated; Seroquel stopped last admit
HX of priapism
DVT ppx: add Lovenox
Code: Full
Anticipated Discharge: > 48 hours
Subjective/Interval History
-
Date of Service: August 21, 2023
reports no further epigastric pain, no nausea/vomiting
ordering breakfast
denies sickle associated pain or SOB
last fever midnight, 100.6
Objective Data
-
Labs:
Laboratory Results
08/21/23
05:17
WBC 20.1 H
Hgb 8.1 L
Hct 22.1 L
Plt Count 233 D
Sodium 131 L
Potassium 4.5
Chloride 103
Carbon Dioxide 22
BUN 25 H
Creatinine 1.0
Glucose 92
Calcium 8.7
Total Bilirubin 8.6 H
AST 207 H
ALT 64 H
Alkaline Phosphatase 94
Vital Signs:
Vital Signs
Temp Pulse Resp BP Pulse Ox
99.8 F 90 17 113/66 91
08/21/23 07:35 08/21/23 07:35 08/21/23 07:35 08/21/23 07:35 08/21/23 07:35
I&O
08/20/23 08/21/23 08/22/23
06:59 06:59 06:59
Intake Total 2880 / 2880
Output Total 3650 / 3650
Balance -770 / -770
Physical Exam
-
General: No Apparent Distress and Appears in Distress
HEENT: Normocephalic and Atraumatic
Respiratory: Clear to Auscultation; Negative Wheezes or Rales
Cardiac: Regular Rhythm and S1/S2
GI: Soft
Genito-urinary: No Costovertebral Tender
Musculoskeletal: No Edema
Hematologic / Lymphatic: No Lymphadenopathy
Psych: Calm
Data Reviewed
-
Total Time Spent with Patient (in minutes): 42
Labs: Labs Reviewed by me
[2023-08-21] MEDS: VITAMIN B-12 1000 MCG PO (09:10)
[2023-08-21] MEDS: THERAGRAN 1 TABLET PO (09:10)
--- NOTE | 2023-08-21 09:41 | CON.GI ---
Addendum entered and electronically signed by Cong Herrera MD 08/21/23 15:33:
I saw and examined the patient.
The RETAIL M[employer]AGE B[employer]ER or PA's note was reviewed and I agree with the note.
Comment: 33yo male recently admitted last week with sickle crisis and hemolysis treated with hydrea. He returns now with fever, worsening LFTs bili up to 9.3 and Dbili 1.7. Transaminases last admission were normal, now AST 144-->207, and ALT 64.
LDH 1598. Last admission haptoglobin <10. Denies abd pain. CT shows urinary bladder thickening suspicious for acute cystitis, cholelithiasis. mild hepatomegaly, chronic autoinfarction of spleen, diffuse osseous sclerosis c/w sickle cell dz.
REC:
Trend LFTs
Check acute hepatitis serologies r/o acute Hep A
Check f/u LDH, check haptoglobin
Hematology seeing pt and restarted hydrea
Check MRI/MRCP r/o biliary ductal stone or disease
Addendum entered and electronically signed by DAKOTA Desouza 08/21/23 14:11:
will add hepatitis panel
Original Note:
Consultation
-
Date/Time Consultation Requested: 08/21/23829
Date/Time Consultation Performed: 08/21/23929
Requesting Provider: Digna Desai MD
Performing Provider: DAKOTA Hudson, Cong Herrera MD
Reason for Consultation: increased LFT's
Medical History
Chief Complaint / HPI
Chief Complaint: increased LFT's
History of Present Illness:
Pt is a 33yo presents with hx asthma, bipolar, substance abuse, Priapisms and sickle cell disease. He is on chronic Hydrea use with elevated MCV prescribed by [facility] but now out on probation with no hematology follow. He was admitted last week
as found down under truck at [facility] after inhaling 12 can electric duster. On admission noted hypoxia with WBC 14,100, hbg 7.8 but also noted bili 8.5 with D bili 0.3, AST 476, ALT 23, and alk phos 69. LDH was 573. Etiology with concern for
elevated LFT's related to hemolysis with sickle cell disease. He was seen by hematology and given Hydroxyurea and fluids and MRI was hold with normal D bili and no abdominal pain on exam. He now returns with fever 103 with vomiting several days
ago. On return bili 8.6, d bili 1.7, AST 207, ALT 64, alk phos 94, LDH 1598 with WBC up to 26,800. CTA on admission with atelectasis, acute cystitis , cholelithiasis, mild hepatomegaly, chronic autoinfarction of spleen, osseous sclerosis c/w
sickle cell. No GBWT,fluid or ductal dilation. No colonic or SB thickening.
At this time pt admits to various symptoms since childhood with sickle cell disease including thigh pain and priapism but denies any significant GI symptoms. He was followed at [facility] as a child then MD in [place]. He currently denies
dysphagia, GERD, nausea, abdominal pain, diarrhea, blood or black in stool. No hx EGD or colonoscopy in past.
Past Medical History
Past Medical History: Asthma, Psychiatric (bipolar disease ) and Other (sickle cell disease, acute chest syndrome, elevated LFt's in past with sickle cell crisis, GI bleed, priapism, substance abuse)
Past Surgical History: Other (adenoids)
Social History
Tobacco: Non-Smoker
Alcohol: None
Drug: Other (polysubtance abuse admits last 3 years ago prior to prision but recent Huffing electric graffiti cleaner)
Living: With Family (with father )
Employment: Employed
Family History
Family History: Other (no family hx sickle cell or GI malignancies )
Allergies / Home Medications
Allergy/AdvReac Type Severity Reaction Status Date / Time
[place] [employer] Allergy Unknown Verified 08/20/23 10:51
�Medication �Instructions �Recorded
loratadine 10 mg tablet 10 mg PO DAILY Allergies 02/05/23
multivitamin (Daily-Suzie tablet) 1 tab PO DAILY Supplement 02/05/23
folic acid 1 mg tablet 1 mg PO DAILY Supplement #100 tabs 08/18/23
cyanocobalamin (vitamin B-12) 1,000 mcg PO DAILY Supplement 08/20/23
1,000 mcg tablet
hydroxyurea 500 mg capsule 500 mg PO DAILY sickle cell disease 08/20/23
Review of Systems
-
History Source: Patient
Constitutional: Reports Fever
EENT: Reports No Symptoms
Respiratory: Reports No Symptoms
Cardiac: Reports No Symptoms
Abdomen/GI: Reports Nausea and Vomiting
: Reports No Symptoms
Musculoskeletal: Reports No Symptoms
Skin: Reports No Symptoms
Neurological: Reports No Symptoms
Endocrine: Reports No Symptoms
Hematologic/Lymphatic: Reports No Symptoms
Vital Signs
Temp Pulse Resp BP Pulse Ox
99.8 F 90 17 113/66 91
08/21/23 07:35 08/21/23 07:35 08/21/23 07:35 08/21/23 07:35 08/21/23 07:35
Physical Exam
Exam
General: Well Developed, Well Nourished and No Apparent Distress
HEENT: Normocephalic, Anicteric and Other (dry mouth )
Respiratory: Clear and Other (decreased bases )
Cardiac: Regular Rhythm
GI: Soft, Non Tender and Non Distended
Musculoskeletal: No Clubbing and No Cyanosis
Skin: Warm and Dry
Neuro: Awake, Alert and AO x 3
Psych: Calm
Results
WBC 20.1 10^3/uL (4.8-10.8) H 08/21/23 05:17
Hgb 8.1 g/dL (13.0-18.0) L 08/21/23 05:17
Hct 22.1 % (39.0-52.0) L 08/21/23 05:17
MCV 92.1 fL (80.0-94.0) 08/21/23 05:17
Plt Count 233 10^3/uL (130-400) D 08/21/23 05:17
Absolute Neuts (auto) 23.5 10^3/uL (1.4-6.5) H 08/20/23 13:55
Sodium 131 mmol/L (135-145) L 08/21/23 05:17
Potassium 4.5 mmol/L (3.5-5.1) 08/21/23 05:17
Chloride 103 mmol/L (98-107) 08/21/23 05:17
Carbon Dioxide 22 mmol/L (22-30) 08/21/23 05:17
BUN 25 mg/dl (9-20) H 08/21/23 05:17
Creatinine 1.0 mg/dL (0.7-1.3) 08/21/23 05:17
Calcium 8.7 mg/dl (8.4-10.2) 08/21/23 05:17
Total Bilirubin 8.6 mg/dl (0.2-1.3) H 08/21/23 05:17
AST 207 U/L (17-59) H 08/21/23 05:17
ALT 64 U/L (0-50) H 08/21/23 05:17
Alkaline Phosphatase 94 U/L (38-126) 08/21/23 05:17
Diagnostic Image Results:
08/19 CTA
CHEST CTA:
1. Mild cardiomegaly.
2. Mild subsegmental atelectasis/scarring in both lower lungs.
3. Mild diffuse osseous sclerosis.
ABDOMEN and PELVIS:
1. Mild diffuse thickening of the urinary bladder wall suspicious for ACUTE CYSTITIS.
2. Cholelithiasis.
3. Mild hepatomegaly.
4. Chronic autoinfarction of the spleen.
5. Diffuse osseous sclerosis consistent with SICKLE CELL DISEASE.
Prior GI Procedures:
EGD: none
Colonoscopy: none
Assessment / Plan
-
Pt is a 33yo presents with hx asthma, bipolar, substance abuse, Priapisms and sickle cell disease. He is on chronic Hydrea use with elevated MCV prescribed by [facility] but now out on probation with no hematology follow. He was admitted last week
as found down under truck at [facility] after inhaling 12 can electric duster. On admission noted hypoxia with WBC 14,100, hbg 7.8 but also noted bili 8.5 with D bili 0.3, AST 476, ALT 23, and alk phos 69. LDH was 573. Etiology with concern for
elevated LFT's related to hemolysis with sickle cell disease. He was seen by hematology and given Hydroxyurea and fluids and MRI was hold with normal D bili and no abdominal pain on exam. He now returns with fever 103 with vomiting several days
ago. On return bili 8.6, d bili 1.7, AST 207, ALT 64, alk phos 94, LDH 1598 with WBC up to 26,800. CTA on admission with atelectasis, acute cystitis , cholelithiasis, mild hepatomegaly, chronic autoinfarction of spleen, osseous sclerosis c/w
sickle cell. No GBWT,fluid or ductal dilation. No colonic or SB thickening.
-elevated bilirubin with now slight increased D letty with normal D bili last admission
-cholelithiasis with large amount of stones in gallbladder lumen
-nausea/vomiting several day ago now resolved
-leukocytosis with fever on admission with concern for sepsis
-hx sickle cell disease
-inhalation of electric duster with recent admission
-anemia
-MCV elevation with hydrea use
-hyponatremia
other medical problems:
-asthma
-bipolar
-substance abuse
-priapism
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
PLAN:
etiology of elevated bili with normal D bili and elevated LDH on admission likely hemolysis with hx sickle cell disease vs biliary issue with now fever/leukocytosis and large amount of stone in gallbladder but currently no abdominal pain, nausea
or vomiting
cont abx per ID
heme eval with sickle cell
trend hbg with anemia
reviewed with Dr. Desai will proceed with MRI/MRCP to exclude any biliary issue with fever -- CT stable no duct dilation but large amount of stones on gallbladder
reviewed with patient will need follow up after discharge for sickle cell management
discussed avoidance of huffing
-
-
Thank you for consultation and allowing me to participate in the patient's care. Please call the health information management director GI physician during the after hours with any questions or concerns.
[2023-08-21] MEDS: NSS (PRESERVATIVE FREE) 10 ML IV (10:09)
[2023-08-21] MEDS: PROTONIX IV 40 MG IV (10:10)
[2023-08-21 11:21] VITALS: BP 127/65
--- NOTE | 2023-08-21 13:09 | W.PN.ID1 ---
Date of Service
Date of Service: August 21, 2023
Today's Communication
cefepime
Assessment / Plan
Fever
Sickle Cell Disorder
Polysubstance abuse - denies IVDU
- bloood cultures x2 in progress - no growth to date
- urine culture negative
- CXR today no infiltrates - repeat two views in AM
- CT a/p cholelithiasis, questionable cystitis (unlikely with negative urine culture)
- covid ag neg
- low suspicion for cholecystitis, note gallstones; follow up MRCP
- CXR no infiltrates, continue cefepime, no need for doxy/vanc
Chief Complaint
-: Fever and Other (sickle cell disorder)
Subjective / Review of Systems
fever curve improving
bp stable
declining wbc count
cr 1.0
blood cultures no growth to date
dry/cracked lips
no new complaints
repeat cxr no infiltrates
Vital Signs / Physical Exam
Vital Signs
Vital Signs
Temp Pulse Resp BP Pulse Ox
98.4 F 95 16 127/65 94
08/21/23 11:21 08/21/23 11:21 08/21/23 11:21 08/21/23 11:21 08/21/23 11:21
Physical Exam
Constitutional: No Acute Distress
Cardiovascular: Regular Rate and S1/S2; Negative Murmur or Rub
Pulmonary: Clear and Symmetric; Negative Wheezes or Rales
Gastrointestinal: Soft, Non Tender, Non Distended and Normal Bowel Sounds
Skin: Warm and Dry; Negative Rash or Jaundice
Objective Data
Lab Data
Lab Results
08/21/23 05:17
08/21/23 05:17
Estimated Creat Clear 102 ml/min 08/21/23 05:17
Lactic Acid Cancelled 08/20/23 15:45
Total Bilirubin 8.6 mg/dl (0.2-1.3) H 08/21/23 05:17
AST 207 U/L (17-59) H 08/21/23 05:17
ALT 64 U/L (0-50) H 08/21/23 05:17
Alkaline Phosphatase 94 U/L (38-126) 08/21/23 05:17
Most recent labs reviewed.
Micro Results:
08/20/23 12:05 Blood Culture - Preliminary
Blood/Venous No Growth in 24 hours- Final report to follow
08/20/23 13:42 Urine Culture - Final
Urine NO GROWTH
08/20/23 13:55 Blood Culture - Pending
Blood/Venous
08/20/23 12:13 Influenza Types A & B (YANCI) - Final
Nasal Swab Negative for Influenza A & B, NAAT
Negative results must be combined with clinical observations
and patient history.
Nucleic Acid Amplification test (NAAT)performed on the
[employer] platform.
[2023-08-21 15:19] VITALS: BP 110/57
--- NOTE | 2023-08-21 15:33 | W.PN.UPDATE ---
Update Note
Progress Note Update
For billing purposes
--- NOTE | 2023-08-21 15:48 | CM ---
Alert awake oriented patient who lives with his father in [place] . His mom lives at [address] [place] [address] .He has a home with 5 steps to enter and 10 to basement to his room.HE is independent in all activities of daily living.No adaptive
devices.He is on parole He requested his supply requirements officer be called to say he is in hospital. Call made LM with Officer Soni Mortensen [employer] [phone]. Pt said his family friends are busy and willl not have ride home. May need to transport to
[facility] for bus line.
No VN hx, He has been in dual dx programs [facility].
Pharmacy [facility]
PCP PCP name on his ID card but did not wish to look for card.
PLAN Home no needs
[2023-08-21] MEDS: LOVENOX 40 MG SC (17:21)
[2023-08-21 19:20] VITALS: BP 129/63
[2023-08-21] MEDS: TYLENOL 650 MG PO (22:06)
[2023-08-21 23:05] VITALS: BP 119/54
[2023-08-22 03:20] VITALS: BP 125/70
[2023-08-22] MEDS: NSS 1000 IV (04:20)
--- NOTE | 2023-08-22 04:46 | DOWNTIME ---
There was a [employer] Client [employer] Downtime on 08/22/2023 from 0100 to 08/22/2023 at 0439. Downtime documentation of patient's care, including medication administrations, has been reconciled in the electronic record per guidelines. Refer to the
patient's paper chart under the miscellaneous tab to see printed paper medication records and downtime forms.
[2023-08-22 06:03] LABS: % Basophils 1.3 % (0-2); % Eosinophils 11.2 % (0-6); % Immature Granulocytes 0.9 % (0-0.5); % Lymphocytes 20.7 % (20.5-51.1); % Monocytes 19.5 % (1.7-9.3); % Neutrophils 46.4 % (42.2-75.2); Absolute Basophils 0.1 10^3/uL (0-0.2); Absolute Eosinophils 1.1 10^3/uL (0-0.7); Absolute Immature Granulocytes 0.1 10^3/uL (0-0.05); Absolute Lymphocytes 2.1 10^3/uL (1.2-3.4); Absolute Neutrophils 4.7 10^3/uL (1.4-6.5); Hemoglobin 7.2 g/dL (13.0-18.0); Mean Corp Hgb Conc. 36.5 g/dL (33.0-37.0); Mean Corpuscular Volume 90.4 fL (80.0-94.0); Mean Platelet Volume 9.6 fL (7.4-10.4); Nucleated Red Blood Cells % 0.6 % (-); Platelet Count 246 10^3/uL (130-400); Red Blood Cell Count 2.18 10^6/uL (4.70-6.10); Red Cell Dist. Width 19.6 % (11.5-14.5); White Blood Cell Count 10.2 10^3/uL (4.8-10.8)
[2023-08-22 06:09] LABS: Hematocrit 19.7 % (39.0-52.0)
[2023-08-22 06:12] LABS: INR 1.49; PT 17.9 Sec (11.4-14.6)
--- NOTE | 2023-08-22 06:20 | PTCARENOTE ---
DAKOTA Stallings notified via TT regarding critical hct result. No s/s bleeding overnight
[2023-08-22 06:34] LABS: ALT (SGPT) 127 U/L (0-50); AST (SGOT) 227 U/L (17-59); Albumin 3.9 g/dl (3.5-5.0); Alkaline Phosphatase 115 U/L (38-126); Blood Urea Nitrogen 18 mg/dl (9-20); Carbon Dioxide 20 mmol/L (22-30); Chloride 110 mmol/L (98-107); Direct Bilirubin 1.1 mg/dl (0.0-0.4); Estimated Creatinine Clearance > 125 ml/min; Glucose 101 mg/dl (70-99); Sodium 136 mmol/L (135-145); Total Bilirubin 6.1 mg/dl (0.2-1.3); Total Protein 7.7 g/dl (6.3-8.2); eGFR > 60.00
[2023-08-22 06:43] LABS: LDH 1623 U/L (120-246)
--- NOTE | 2023-08-22 07:07 | W.PN.ONC2 ---
Today's Communication / Plan
-
Await MRI/MRCP
Impression
Impression
Hemolytic anemia
Sickle cell disease
Reticulocytosis
Leukocytosis
Fever of unknown origin
Nausea/vomiting/abdominal pain
Transaminitis
Cholelithiasis with gallstones on imaging
Hepatomegaly
Polysubstance abuse
Inhalant abuse
Possible urinary tract infection
Plan
Plan
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
On Folic acid and hydroxyurea. Continue.
Transfuse PRN to maintain Hgb >7
Appreciate GI consult - MRI/MRCP pending
Subjective/Objective
Chief Complaint
ACS Heme Onc
Subjective
No c/o. Denies pain.
Vital Signs:
Vital Signs
Temp Pulse Resp BP Pulse Ox
98.3 F 77 17 125/70 93
08/22/23 03:20 08/22/23 03:20 08/22/23 03:20 08/22/23 03:20 08/22/23 03:20
Lab Results:
Laboratory Data
WBC 10.2 10^3/uL (4.8-10.8) 08/22/23 05:34
Hgb 7.2 g/dL (13.0-18.0) L 08/22/23 05:34
Plt Count 246 10^3/uL (130-400) 08/22/23 05:34
PT 17.9 Sec (11.4-14.6) H 08/22/23 05:34
INR 1.49 08/22/23 05:34
eGFR > 60.00 08/22/23 05:34
Physical Exam
Cardiology: S1 and S2
Pulmonary: Clear
GI: Soft
Extremities: No C/C/E
[2023-08-22 07:55] VITALS: BP 107/50
[2023-08-22] MEDS: CLARITIN 10 MG PO (08:07)
[2023-08-22] MEDS: VITAMIN B-12 1000 MCG PO (08:07)
[2023-08-22] MEDS: FOLVITE 1 MG PO (08:08)
[2023-08-22] MEDS: STERILE WATER FOR INJECTION 10 ML IV (08:08)
[2023-08-22] MEDS: HYDREA 500 MG PO (08:08)
[2023-08-22] MEDS: MAXIPIME 2000 MG IV (08:08)
[2023-08-22] MEDS: VIBRAMYCIN 100 MG PO (08:08)
[2023-08-22] MEDS: NSS (PRESERVATIVE FREE) 10 ML IV (08:08)
[2023-08-22] MEDS: THERAGRAN 1 TABLET PO (08:08)
[2023-08-22] MEDS: PROTONIX IV 40 MG IV (08:09)
--- NOTE | 2023-08-22 08:51 | W.PN.ONC2 ---
Today's Communication / Plan
-
Await MRI/MRCP. Okay to withhold PRBC today for HgB 7.2 as relatively asymptomatic. F/U CBC in AM.
Impression
Impression
Hemolytic anemia
Sickle cell disease
Reticulocytosis
Leukocytosis
Fever of unknown origin
Nausea/vomiting/abdominal pain
Transaminitis
Cholelithiasis with gallstones on imaging
Hepatomegaly
Polysubstance abuse
Inhalant abuse
Possible urinary tract infection
Plan
Plan
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
On Folic acid and hydroxyurea. Continue.
Transfuse PRN to maintain Hgb >7
Appreciate GI consult - MRI/MRCP pending
Subjective/Objective
Chief Complaint
ACS Heme
Subjective
Denies pain or symptoms from anemia. No obvious bleeding.
Vital Signs:
Vital Signs
Temp Pulse Resp BP Pulse Ox
98.5 F 74 16 107/50 98
08/22/23 07:55 08/22/23 07:55 08/22/23 07:55 08/22/23 07:55 08/22/23 07:55
Lab Results:
Laboratory Data
WBC 10.2 10^3/uL (4.8-10.8) 08/22/23 05:34
Hgb 7.2 g/dL (13.0-18.0) L 08/22/23 05:34
Plt Count 246 10^3/uL (130-400) 08/22/23 05:34
PT 17.9 Sec (11.4-14.6) H 08/22/23 05:34
INR 1.49 08/22/23 05:34
eGFR > 60.00 08/22/23 05:34
Physical Exam
HEENT: No Jaundice
Cardiology: S1 and S2
Pulmonary: Clear
GI: Soft
Extremities: No C/C/E
--- NOTE | 2023-08-22 11:11 | W.PN.HOSP.TC ---
Today's Communication/Plan
-
follow GI recs; trend LFTs
follow Hematology recs; repeat Hb in AM
continue Abx per ID; follow cultures which are so far negative
Assessment / Plan
Assessment / Plan
Assessment:
Sepsis POA (fever, leukocytosis, possible UTI vs other)
- COVID and Influenza swabs are negative
- Chest X-ray negative
- CT Chest: no PE, no consolidation, subsegmental atelectasis or scarring in the inferior aspect of the right middle lobe and in the basilar segments of the lower lobes of both lungs
- CT A/P: large amount of cholelithiasis in the gallbladder lumen. bands of scarring adjacent to the tail the pancreas in the expected location of the spleen consistent with chronic autoinfarction of the spleen. Otherwise negative. Moderate amount
of fecal material in the sigmoid colon and rectum which are mildly distended. There is no abnormal colonic or rectal wall thickening.
- follow cultures
- continue Cefepime as per ID, day 3
Nausea/vomiting/abdominal pain
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
Mostly indirect bilirubinemia from sickle disease
- direct bili 1.7 to 1.1
- CT without acute findings
- MRI/MRCP: No biliary ductal dilatation. The distal common bile duct is difficult to visualize, and may be collapsed. Cholelithiasis. No MR evidence to suggest acute cholecystitis. Mild hepatomegaly.
- GI following
- continue PPI
- trend LFTs
Recurrent Inhalant abuse
- CT without acute findings
- no SOB or hypoxia
- counselled on strict cessation
Sickle Cell Disease
- Hb 7.2 this morning, possible from acute dilutional effect
- d/w Hematology Dr. Gilman - hold off transfusion at present. patient is consented, type/screen completed
- continue IVF
- Continue hydroxyurea
- Monitor retic count and LDH
- Hematology following
- continue Hydrea/Folic acid/B12 at discharge. repeat CBC in 2 weeks while on Hydrea. OP Hematology f/u with info given last admit
Hyponatremia
- improved with IVF
Marijuana user
Hx of drug abuse
- [facility] arranged IOP last admission
History of mild asthma
- Not on treatment
- DuoNebs every 6 hours for wheezing as needed
Bipolar/anxiety/depression
- psych evaluated; Seroquel stopped last admit
HX of priapism
Incidental asymmetric gynecomastia (L>R)
- dedicated breast imaging as outpatient
DVT ppx: Lovenox
Code: Full
Anticipated Discharge: 24 - 48 hours
Subjective/Interval History
-
Date of Service: August 22, 2023
no new complaints when seen earlier
HB 7.2
Objective Data
-
Labs:
Laboratory Results
08/22/23 08/22/23 08/22/23
05:34 11:03 17:00
WBC 10.2
Hgb 7.2 L Pending Pending
Hct 19.7 L* Pending Pending
Plt Count 246
PT 17.9 H
INR 1.49
Sodium 136
Potassium 4.0
Chloride 110 H
Carbon Dioxide 20 L
BUN 18
Creatinine 0.8
Glucose 101 H
Calcium 9.0
Total Bilirubin 6.1 H
AST 227 H
ALT 127 H
Alkaline Phosphatase 115
08/22/23
23:00
WBC
Hgb Pending
Hct Pending
Plt Count
PT
INR
Sodium
Potassium
Chloride
Carbon Dioxide
BUN
Creatinine
Glucose
Calcium
Total Bilirubin
AST
ALT
Alkaline Phosphatase
Vital Signs:
Vital Signs
Temp Pulse Resp BP Pulse Ox
98.5 F 74 16 107/50 98
08/22/23 07:55 08/22/23 07:55 08/22/23 07:55 08/22/23 07:55 08/22/23 07:55
I&O
08/21/23 08/22/23 08/23/23
06:59 06:59 06:59
Intake Total 2880 / 2880 4160 / 4160
Output Total 3650 / 3650 4800 / 4800
Balance -770 / -770 -640 / -640
Physical Exam
-
General: No Apparent Distress
HEENT: Normocephalic and Atraumatic
Respiratory: Negative Wheezes or Rales
Cardiac: Regular Rhythm and S1/S2
GI: Soft and Nontender
Musculoskeletal: No Edema
Neuro: AO x 3
Hematologic / Lymphatic: No Lymphadenopathy
Psych: Calm
Data Reviewed
-
Total Time Spent with Patient (in minutes): 41
Labs: Labs Reviewed by me
[2023-08-22 11:14] LABS: Hemoglobin 7.6 g/dL (13.0-18.0)
[2023-08-22 11:18] VITALS: BP 123/64
--- NOTE | 2023-08-22 11:21 | W.PN.GI.CBS2 ---
Today's Communication / Plan
-
MRI did not visualize distal CBD well, possibly collapsed
Clinically, suspicion for CBD stone is low. He has no abd pain
Will follow and if suspicion increases, can consider EUS to evaluate for CBD stone
Cont abx per ID
Cont hydrea/folic acid per Heme
LDH remains high, suspect hyperbilirubinemia predominantly due to hemolysis
Assessment / Plan
-
Summary: 33yo presents with hx asthma, bipolar, substance abuse, Priapisms and sickle cell disease. He is on chronic Hydrea use with elevated MCV prescribed by group home but now out on probation with no hematology follow. He was admitted last week
as found down under truck at [facility] after inhaling 12 can electric duster. On admission noted hypoxia with WBC 14,100, hbg 7.8 but also noted bili 8.5 with D bili 0.3, AST 476, ALT 23, and alk phos 69. LDH was 573. Etiology with concern for
elevated LFT's related to hemolysis with sickle cell disease. He was seen by hematology and given Hydroxyurea and fluids and MRI was hold with normal D bili and no abdominal pain on exam. He now returns with fever 103 with vomiting several days
ago. On return bili 8.6, d bili 1.7, AST 207, ALT 64, alk phos 94, LDH 1598 with WBC up to 26,800. CTA on admission with atelectasis, acute cystitis , cholelithiasis, mild hepatomegaly, chronic autoinfarction of spleen, osseous sclerosis c/w
sickle cell. No GBWT,fluid or ductal dilation. No colonic or SB thickening.
08/22/23 MRI
No biliary ductal dilatation. The distal common bile duct is difficult to visualize, and may be collapsed.
Cholelithiasis. No MR evidence to suggest acute cholecystitis.
Mild hepatomegaly.
Renal cortical signal intensity suggest the possibility of cortical iron deposition, which may be secondary to hemolysis or transfusion-related, secondary to sickle cell disease
Incidental asymmetric gynecomastia, with more masslike appearance on the left. Further evaluation advised to exclude the possibility of breast cancer.
Impression:
-elevated bilirubin with now slight increased D bili. Normal D bili last admission
-cholelithiasis with large amount of stones in gallbladder lumen
-nausea/vomiting several day ago now resolved
-leukocytosis with fever on admission with concern for sepsis
-hx sickle cell disease
-inhalation of electric duster with recent admission
-anemia
-MCV elevation with hydrea use
-hyponatremia
other medical problems:
-asthma
-bipolar
-substance abuse
-priapism
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
Subjective
Subjective
Date of Service: August 22, 2023
No complaints. No abd pain
Objective
Data Reviewed
Laboratory Data:
Laboratory Results
08/22/23 05:34
Laboratory Results
PT 17.9 Sec (11.4-14.6) H 08/22/23 05:34
INR 1.49 08/22/23 05:34
Total Bilirubin 6.1 mg/dl (0.2-1.3) H 08/22/23 05:34
AST 227 U/L (17-59) H 08/22/23 05:34
ALT 127 U/L (0-50) H 08/22/23 05:34
Alkaline Phosphatase 115 U/L (38-126) 08/22/23 05:34
Vital Signs and I&O:
Vital Signs
Temp Pulse Resp BP Pulse Ox
98.3 F 79 17 123/64 98
08/22/23 11:18 08/22/23 11:18 08/22/23 11:18 08/22/23 11:18 08/22/23 11:18
I&O
08/21/23 08/22/23 08/23/23
06:59 06:59 06:59
Intake Total 2880 / 2880 4160 / 4160
Output Total 3650 / 3650 4800 / 4800
Balance -770 / -770 -640 / -640
Physical Exam
Physical Exam
GI: Soft, Non Distended and Non Tender
[2023-08-22 11:22] LABS: Hematocrit 19.5 % (39.0-52.0)
[2023-08-22] MEDS: NSS IV (15:02)
[2023-08-22 15:48] VITALS: BP 110/68
--- NOTE | 2023-08-22 15:52 | W.PN.ID1 ---
Date of Service
Date of Service: August 22, 2023
Today's Communication
- no bacterial infection identified
- stopped antibiotics
- follow clinically overnight
Assessment / Plan
Fever - resovled
Sickle Cell Disorder
Gallstones
Polysubstance abuse - denies IVDU
- blood cultures no growth to date
- no bacterial infection identified
- stopped antibiotics
- follow clinically overnight
MRI report: Incidental asymmetric gynecomastia, with more masslike appearance on the left. Further evaluation advised to exclude the possibility of breast cancer - notified oncology team
Chief Complaint
-: Fever and Other (sickle cell disorder)
Subjective / Review of Systems
no further fevers
bp stable
hgb 7s
cr stable
alk phos remains normal
blood cultures no growth to date
abd MRI: no acue cholecystitis
Vital Signs / Physical Exam
Vital Signs
Vital Signs
Temp Pulse Resp BP Pulse Ox
98.6 F 83 18 110/68 95
08/22/23 15:48 08/22/23 15:48 08/22/23 15:48 08/22/23 15:48 08/22/23 15:48
Physical Exam
Constitutional: No Acute Distress
Cardiovascular: Regular Rate and S1/S2; Negative Murmur or Rub
Pulmonary: Clear and Symmetric; Negative Wheezes or Rales
Gastrointestinal: Soft, Non Tender, Non Distended and Normal Bowel Sounds
Skin: Warm and Dry; Negative Rash or Jaundice
Objective Data
Lab Data
Lab Results
08/22/23 05:34
PT 17.9 Sec (11.4-14.6) H 08/22/23 05:34
INR 1.49 08/22/23 05:34
Estimated Creat Clear > 125 ml/min 08/22/23 05:34
Lactic Acid Cancelled 08/20/23 15:45
Total Bilirubin 6.1 mg/dl (0.2-1.3) H 08/22/23 05:34
AST 227 U/L (17-59) H 08/22/23 05:34
ALT 127 U/L (0-50) H 08/22/23 05:34
Alkaline Phosphatase 115 U/L (38-126) 08/22/23 05:34
Most recent labs reviewed.
Micro Results:
08/20/23 13:55 Blood Culture - Preliminary
Blood/Venous No Growth in 48 hours- Final report to follow
08/20/23 12:05 Blood Culture - Preliminary
Blood/Venous No Growth in 48 hours- Final report to follow
08/20/23 13:42 Urine Culture - Final
Urine NO GROWTH
08/20/23 12:13 Influenza Types A & B ([facility]) - Final
Nasal Swab Negative for Influenza A & B, NAAT
Negative results must be combined with clinical observations
and patient history.
Nucleic Acid Amplification test (NAAT)performed on the
[employer] platform.
--- NOTE | 2023-08-22 16:54 | CM ---
H and H low.
Continue to assess .
ID involved.
Pt said no one drive him home .He said he lives in [place] with dad.Mom lives in [place].
Offered Lyft to Bus station in [place] at [place].
PLAN Home no needs
[2023-08-22] MEDS: LOVENOX 40 MG SC (17:14)
[2023-08-22 17:21] LABS: Hemoglobin 7.7 g/dL (13.0-18.0)
[2023-08-22 17:29] LABS: Hematocrit 19.9 % (39.0-52.0)
[2023-08-22 19:30] VITALS: BP 137/70
[2023-08-22 23:12] LABS: Hemoglobin 7.6 g/dL (13.0-18.0)
[2023-08-22 23:14] LABS: Hematocrit 19.2 % (39.0-52.0)
[2023-08-22 23:25] VITALS: BP 125/64
--- NOTE | 2023-08-23 00:05 | PTCARENOTE ---
@0370;Instructed Clara DUNCAN ,on critical lab ,via TT, Hgb: 7.6.
--- NOTE | 2023-08-23 03:00 | PTCARENOTE ---
@0500;Instructed pt that this the 4th Hgb lab that is needed.Pt pulled the covers over his face and stated,'NO it's not .I already had it done with the other girl.Come back in 2-3 hours'.Labs unable to be drawn.
[2023-08-23 03:53] VITALS: BP 135/74
[2023-08-23 07:30] VITALS: BP 129/60
--- NOTE | 2023-08-23 08:02 | W.PN.HOSP.TC ---
Addendum entered and electronically signed by Norbert Gilbert MD 08/23/23 15:52:
After study Sepsis has been ruled out; fever/SIRS only
Original Note:
Today's Communication/Plan
-
Continue current management. Discharge planning today.
Assessment / Plan
Assessment / Plan
Physical exam:
General: Well Developed, Well Nourished and No Apparent Distress
HEENT: Normocephalic, Atraumatic and Moist Mucous Membranes
Respiratory: Clear to Auscultation; Negative Wheezes, Rales or Rhonchi
Cardiac: Regular Rhythm and S1/S2
GI: Soft, Nontender and Nondistended
Musculoskeletal: No Clubbing, No Cyanosis and No Edema
Neuro: Awake, Alert and Oriented
Psych: Calm
Assessment:
Sepsis POA (fever, leukocytosis, possible UTI vs other)
- COVID and Influenza swabs are negative
- Chest X-ray negative
- CT Chest: no PE, no consolidation, subsegmental atelectasis or scarring in the inferior aspect of the right middle lobe and in the basilar segments of the lower lobes of both lungs
- CT A/P: large amount of cholelithiasis in the gallbladder lumen. bands of scarring adjacent to the tail the pancreas in the expected location of the spleen consistent with chronic autoinfarction of the spleen. Otherwise negative. Moderate amount
of fecal material in the sigmoid colon and rectum which are mildly distended. There is no abnormal colonic or rectal wall thickening.
- follow cultures--> cultures negative.
-Off antibiotics
-He has been afebrile since 08/20 and off antibiotics since then as well.
-Reach out to ID today and they are okay with discharge plan today.
Nausea/vomiting/abdominal pain
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
Mostly indirect bilirubinemia from sickle disease
- direct bili 1.7 to 1.1
- CT without acute findings
- MRI/MRCP: No biliary ductal dilatation. The distal common bile duct is difficult to visualize, and may be collapsed. Cholelithiasis. No MR evidence to suggest acute cholecystitis. Mild hepatomegaly.
- GI following
- continue PPI
- trending down LFTs--> can trend as outpatient
-GI does not plan to do any further workup.
-Reach out to GI and they cleared him for discharge today.
Recurrent Inhalant abuse
- CT without acute findings
- no SOB or hypoxia
- counselled on strict cessation
Sickle Cell Disease
- Hb 7.4 this morning
-Discussed with hematology today and they are okay with discharging today.
Prior to today:
- d/w Hematology Dr. Gilman - hold off transfusion at present. patient is consented, type/screen completed
- continue IVF
- Continue hydroxyurea
- Monitor retic count and LDH
- Hematology following
- continue Hydrea/Folic acid/B12 at discharge. repeat CBC in 2 weeks while on Hydrea. OP Hematology f/u with info given last admit
Hyponatremia
-Sodium normal today, 136
- improved with IVF
Marijuana user
Hx of drug abuse
- [facility] arranged IOP last admission
History of mild asthma
- Not on treatment
- DuoNebs every 6 hours for wheezing as needed
Bipolar/anxiety/depression
- psych evaluated; Seroquel stopped last admit
HX of priapism
Incidental asymmetric gynecomastia (L>R)
- dedicated breast imaging as outpatient
-Outpatient mammogram for follow-up as outpatient
DVT ppx: Lovenox
Code: Full
Anticipated Discharge: Today
Subjective/Interval History
-
Date of Service: August 23, 2023
Patient denies any abdominal pain. Patient remains afebrile.
Objective Data
-
Labs:
Laboratory Results
08/22/23 08/23/23
23:07 06:00
WBC Pending
Hgb 7.6 L Pending
Hct 19.2 L* Pending
Plt Count Pending
Sodium Pending
Potassium Pending
Chloride Pending
Carbon Dioxide Pending
BUN Pending
Creatinine Pending
Glucose Pending
Calcium Pending
Total Bilirubin Pending
AST Pending
ALT Pending
Alkaline Phosphatase Pending
Vital Signs:
Vital Signs
Temp Pulse Resp BP Pulse Ox
98.1 F 68 16 129/60 94
08/23/23 07:30 08/23/23 07:30 08/23/23 07:30 08/23/23 07:30 08/23/23 07:30
I&O
08/22/23 08/23/23 08/24/23
06:59 06:59 06:59
Intake Total 4160 / 4160 1680 / 1680
Output Total 4800 / 4800 3300 / 3300
Balance -640 / -640 -1620 / -1620
[2023-08-23] MEDS: NSS (PRESERVATIVE FREE) 10 ML IV (08:32)
[2023-08-23] MEDS: PROTONIX IV 40 MG IV (08:32)
[2023-08-23] MEDS: CLARITIN 10 MG PO (08:32)
[2023-08-23] MEDS: FOLVITE 1 MG PO (08:33)
[2023-08-23] MEDS: VITAMIN B-12 1000 MCG PO (08:33)
[2023-08-23] MEDS: THERAGRAN 1 TABLET PO (08:33)
[2023-08-23] MEDS: HYDREA 500 MG PO (08:33)
--- NOTE | 2023-08-23 09:56 | W.PN.ONC ---
Today's Communication / Plan
-
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
08/22 Hgb 7.4
CBC with diff daily
Transfuse PRN to maintain Hgb >7
Continue folic acid and Hydroxyurea
s/p MRI/MRCP with Dr. Herrera: No biliary ductal dilatation. The distal common bile duct is difficult to visualize, and may be collapsed. Cholelithiasis. No MR evidence to suggest acute cholecystitis. Mild hepatomegaly.
Antibiotics discontinued
[facility] for IOP upon discharge
Outpatient breast imaging recommended via PCP
Continue supportive care. We will follow
Impression
Impression
Hemolytic anemia
Sickle cell disease
Reticulocytosis
Leukocytosis (resolved)
Fevers (last temp 08/20)
Nausea/vomiting/abdominal pain (resolved)
Transaminitis
Cholelithiasis with gallstones on imaging
Hepatomegaly
Polysubstance abuse
Inhalant abuse
Asymmetric gynecomastia w/ masslike structure on left on MRI
Upper lip abrasion
Subjective/Objective
Subjective/Objective
patient is resting in bed. he denies abdominal pain, shortness of breath, or difficulty breathing. Denies N/V. Inquiring about MRI.
Vital Signs:
Vital Signs
Temp Pulse Resp BP Pulse Ox
98.1 F 68 16 129/60 94
08/23/23 07:30 08/23/23 07:30 08/23/23 07:30 08/23/23 07:30 08/23/23 07:30
physical exam:
aaox3, calm/cooperative
large upper lip abrasion
HRR, lungs clear/room air
mild scleral icterus
abdomen soft, nontender
Lab Results:
Laboratory Data
WBC 10.2 10^3/uL (4.8-10.8) 08/22/23 05:34
Hgb 7.6 g/dL (13.0-18.0) L 08/22/23 23:07
Plt Count 246 10^3/uL (130-400) 08/22/23 05:34
PT 17.9 Sec (11.4-14.6) H 08/22/23 05:34
INR 1.49 08/22/23 05:34
eGFR > 60.00 08/22/23 05:34
08/22/23 Abdominal MRI: No biliary ductal dilatation. The distal common bile duct is difficult to visualize, and may be collapsed.Cholelithiasis. No MR evidence to suggest acute cholecystitis.Mild hepatomegaly.Renal cortical signal intensity suggest
the possibility of cortical iron deposition, which may be secondary to hemolysis or transfusion-related, secondary to sickle cell disease. Incidental asymmetric gynecomastia, with more masslike appearance on the left. Further evaluation advised to
exclude the possibility of breast cancer.
--- NOTE | 2023-08-23 10:34 | W.PN.GI.CBS2 ---
Addendum entered and electronically signed by Cong Herrera MD 08/23/23 10:51:
I reviewed the finding of asymmetric L sided gynecomastia with the patient and recommended he follow up as an outpt with his PCP for further evaluation and possible mammogram
Original Note:
Today's Communication / Plan
-
No CBD stone on MRI but distal CBD not well visualized. Pt is asymptomatic so would hold off on further eval
Fever resolved, abx stopped by ID, no recurrence
Suspect presentation primarily due to sickle disease and hemolysis
check f/u LFTs 1 week after d/c
Hep A/B/C pending
Will sign off. Please call back if needed
Assessment / Plan
-
Summary: 33yo presents with hx asthma, bipolar, substance abuse, Priapisms and sickle cell disease. He is on chronic Hydrea use with elevated MCV [facility] but now out on probation with no hematology follow. He was admitted last week
as found down under truck at [facility] after inhaling 12 can electric duster. On admission noted hypoxia with WBC 14,100, hbg 7.8 but also noted bili 8.5 with D bili 0.3, AST 476, ALT 23, and alk phos 69. LDH was 573. Etiology with concern for
elevated LFT's related to hemolysis with sickle cell disease. He was seen by hematology and given Hydroxyurea and fluids and MRI was hold with normal D bili and no abdominal pain on exam. He now returns with fever 103 with vomiting several days
ago. On return bili 8.6, d bili 1.7, AST 207, ALT 64, alk phos 94, LDH 1598 with WBC up to 26,800. CTA on admission with atelectasis, acute cystitis , cholelithiasis, mild hepatomegaly, chronic autoinfarction of spleen, osseous sclerosis c/w
sickle cell. No GBWT,fluid or ductal dilation. No colonic or SB thickening.
08/22/23 MRI
No biliary ductal dilatation. The distal common bile duct is difficult to visualize, and may be collapsed.
Cholelithiasis. No MR evidence to suggest acute cholecystitis.
Mild hepatomegaly.
Renal cortical signal intensity suggest the possibility of cortical iron deposition, which may be secondary to hemolysis or transfusion-related, secondary to sickle cell disease
Incidental asymmetric gynecomastia, with more masslike appearance on the left. Further evaluation advised to exclude the possibility of breast cancer.
Impression:
-elevated bilirubin with now slight increased D bili. Normal D bili last admission
-cholelithiasis with large amount of stones in gallbladder lumen
-nausea/vomiting several day ago now resolved
-leukocytosis with fever on admission with concern for sepsis
-hx sickle cell disease
-inhalation of electric duster with recent admission
-anemia
-MCV elevation with hydrea use
-hyponatremia
other medical problems:
-asthma
-bipolar
-substance abuse
-priapism
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
Subjective
Subjective
Date of Service: August 23, 2023
No complaints. Eating breakfast without any c/o
Objective
Data Reviewed
Laboratory Data:
Laboratory Results
PT 17.9 Sec (11.4-14.6) H 08/22/23 05:34
INR 1.49 08/22/23 05:34
Total Bilirubin 6.1 mg/dl (0.2-1.3) H 08/22/23 05:34
AST 227 U/L (17-59) H 08/22/23 05:34
ALT 127 U/L (0-50) H 08/22/23 05:34
Alkaline Phosphatase 115 U/L (38-126) 08/22/23 05:34
Vital Signs and I&O:
Vital Signs
Temp Pulse Resp BP Pulse Ox
98.1 F 68 16 129/60 94
08/23/23 07:30 08/23/23 07:30 08/23/23 07:30 08/23/23 07:30 08/23/23 07:30
I&O
08/22/23 08/23/23 08/24/23
06:59 06:59 06:59
Intake Total 4160 / 4160 1680 / 1680
Output Total 4800 / 4800 3300 / 3300
Balance -640 / -640 -1620 / -1620
Physical Exam
Physical Exam
GI: Soft, Non Distended and Non Tender
[2023-08-23 10:42] LABS: Hemoglobin 7.4 g/dL (13.0-18.0); Mean Corp Hgb Conc. 36.5 g/dL (33.0-37.0); Mean Corpuscular Hgb 32.3 pg (27.0-31.0); Mean Corpuscular Volume 88.6 fL (80.0-94.0); Nucleated Red Blood Cells % 0.6 % (-); Platelet Count 300 10^3/uL (130-400); Red Blood Cell Count 2.29 10^6/uL (4.70-6.10); Red Cell Dist. Width 19.1 % (11.5-14.5); White Blood Cell Count 9.5 10^3/uL (4.8-10.8)
[2023-08-23 10:45] LABS: Hematocrit 20.3 % (39.0-52.0)
[2023-08-23 10:46] LABS: ALT (SGPT) 111 U/L (0-50); AST (SGOT) 107 U/L (17-59); Albumin 4.2 g/dl (3.5-5.0); Alkaline Phosphatase 116 U/L (38-126); Blood Urea Nitrogen 13 mg/dl (9-20); Calcium 9.4 mg/dl (8.4-10.2); Carbon Dioxide 20 mmol/L (22-30); Chloride 110 mmol/L (98-107); Estimated Creatinine Clearance > 125 ml/min; Glucose 106 mg/dl (70-99); Sodium 136 mmol/L (135-145); Total Bilirubin 3.9 mg/dl (0.2-1.3); Total Protein 8.2 g/dl (6.3-8.2); eGFR > 60.00
--- NOTE | 2023-08-23 11:29 | W.DCSUMMARY ---
Discharge Summary
Discharge Data
Date of Admission: 08/21/23
Date of Discharge: 08/23/23
-
Pending Results: No
Hospital Course
Patient 33 years old male with history of asthma, substance abuse, priapism in the past, sickle cell disease came into the hospital after reportedly at [employer] lot and reported to have a fever. Patient course complicated and described as
below.
Patient was seen by ID. He was started on broad-spectrum IV antibiotics. His infectious workup unremarkable with blood cultures sterile from 08/19, urine culture no growth, SARS-CoV-2 antigen negative, influenza negative, chest x-ray no acute
cardiopulmonary process. Ultimately, antibiotics were discontinued on 08/20. Patient had remained afebrile since 08/20. ID cleared him for discharge today.
Patient also was seen by GI due to elevated liver function test. CT scan of the abdomen shows diffuse thickening of the urinary bladder, cholelithiasis, mild hepatomegaly, chronic or infarction of the spleen, diffuse osteosclerosis part of his
sickle cell disease. GI ordered MRCP. MRCP showed no biliary ductal dilatation, distal common bile duct difficult to visualize and may be collapse, some cholelithiasis but no evidence to suggest acute cholecystitis, mild hepatomegaly, renal
cortical signal intensity given secondary to sickle cell disease, and incidental asymmetric gynecomastia with more masslike appearance in the left. GI felt that clinical suspicion for CBD stone was low and without abdominal pain no need for further
workup. They also felt LDH was high due to some degree of hemolysis due to underlying sickle cell. EUS was contemplated but not required since his clinical status improved. His hepatitis panel but can be follow-up as outpatient GI recommended
follow-up LFTs in a week after discharge. Overall his LFTs are trending down. GI cleared him for discharge today.
Patient seen by hematology. Hematology recommended to continue Hydrea. Did not feel there was any sickle cell pain but recommended out of bed and oral hydration. Hematology also did not think that he needed any blood transfusion. His hemoglobin
upon discharge was 7.4. Agency Legal Counsel cleared him for discharge today.
Overall, patient is hemodynamically stable and has remained afebrile. Patient is very eager to go home today. He will be discharged in stable condition today.
Discharge duration: 36 minutes
Discharge Plan
-
Patient Disposition: Home (Routine Discharge)
Discharge Diagnosis/Procedures: Sepsis. Anemia. Sickle cell disease. Recurrent inhalant abuse. Hyponatremia. Marijuana use disorder. Asthma. Bipolar. Breast mass and gynecomastia.
Diet: Low Cholesterol
Activity: As tolerated
Driving Restrictions: As prior to admission
Blood Work: Please PCP to order CBC, CMP within 1 week.
Others Tests: will need mamogram if not completed on admission to follow up on breast mass seen on MRI abdomen. Please PCP to order mammogram.
Referrals:
Primary care, provider [Other] (See less than 1 week)
Cong Herrera MD [Active] - in one to two months
Jayna Márquez MD [Active] - in two to three weeks
Clary Mccabe MD [Active] - in one to two months
Prescriptions:
Continued
multivitamin [Daily-Suzie] Tablet
1 tab PO DAILY
loratadine 10 mg Tablet
10 mg PO DAILY
folic acid 1 mg Tablet
1 mg PO DAILY Qty: 100 0RF
cyanocobalamin (vitamin B-12) 1,000 mcg tablet
1,000 mcg PO DAILY
hydroxyurea 500 mg capsule
500 mg PO DAILY
Discharge Orders:
Discharge Patient (As Directed); Ordered 08/23/23
Ordered By: Norbert Gilbert
Discharge Date and Time
Print Language: SERBIAN
[2023-08-23 12:32] VITALS: BP 137/72
[2023-08-23 13:28] LABS: Absolute Neutrophils -Man Diff 4.5 10^3/uL (1.4-6.5); Anisocytosis Slight; Band Neutrophils 0 % (0-3); Eosinophils 10 % (0-6); Hypochromasia 1+; Lymphocytes 27 % (20-51); Monocytes 15 % (2-9); Normal RBC Morphology No; Platelets Checked Yes; Polychromasia 1+; Segmented Neutrophils 48 % (42-75); Target Cells Slight
[2023-08-23 13:29] LABS: Ovalocytes Slight; Sickled Red Blood Cells 1+; Total Cells Counted 100
[2023-08-23 13:52] VITALS: BP 129/80
--- NOTE | 2023-08-23 14:20 | CM ---
MD entered order for discharge.
Spoke with patient in room. He said he family and friends are selfish and will not pick him up from hospital.
Pt given schedule for [facility] $1.00 to get to [place] .
He said he had schedule for regular bus routes.
PLAN Home with no needs
--- NOTE | 2023-08-23 15:27 | PN.CDI ---
CDI
- -
CDI:
Physician Documentation Request
Admit Date: 08/21/23 09:33
Dear Doctor Vladimir,
Clinical Indicators:
Documentation in the record on includes the diagnosis of sepsis. The following clinical information was noted:
08/19 H & P, 'SIRS, source of infection remains in unclear.'
08/21 ID PN, 'no bacterial infection identified...Fever - resolved.'
08/22 PN, Sepsis POA (fever, leukocytosis, possible UTI vs other)...- follow cultures--> cultures negative..'
Based on the above information and the recognized standard SIRS criteria, please clarify if sepsis is still an accurate diagnosis, and reflective of the patient�s condition, to ensure quality of the medical record.
Please clarify in the Progress Notes:
�Sepsis is/was present and is a clinical diagnosis based on .(please include this
additional support in the medical record)
�After study sepsis has been ruled out; Fever/SIRS only
�Other, please specify
Use of terms such as suspected, likely, concern for, or probable (associated with a specific diagnosis that is being evaluated, monitored, or treated as if it exists) are acceptable and can be coded in the inpatient setting, when documented at the
time of discharge.
Thank you,
KATALINA De Jesus RN
CDI Specialist
available via tiger text
Please use your independent medical judgment in providing your response.
[2023-08-23 19:09] LABS: Hepatitis B Surface Antigen Negative (Negative)
[2023-08-23 19:27] LABS: Hepatitis B Core Ab, Total Negative (Negative); Hepatitis B Surface Antibody Positive; Hepatitis C Antibody Negative (Negative)
[2023-08-23 19:52] LABS: Hepatitis A Antibody, Total Positive (Negative)
[2023-08-23 20:40] LABS: Hepatitis A IgM Antibody Negative (Negative)
[2023-08-24 05:03] LABS: Haptoglobin <10 mg/dL (30-200)
== END 2023-08-23 15:17 | disposition home or self-care (01) | DRG 864 ==
LOC: 3 WEST ACU 09:33
PROVIDERS: Nurse Practitioner Adult Health; Nurse Practitioner Family; Physician Assistant Medical; ADMITTING PHYSICIAN Internal Medicine; ATTENDING PHYSICIAN Hospitalist; CONSULT PHYSICIAN Specialist; EMERGENCY PHYSICIAN Emergency Medicine; OTHER PHYSICIAN Internal Medicine Hematology & Oncology; OTHER PHYSICIAN Student in an Organized Health Care Education/Training Program
DX: R50.9 Fever, unspecified (principal); D57.00 Hb-SS disease with crisis, unspecified; R65.10 Systemic inflammatory response syndrome (SIRS) of non-infectious origin without acute organ dysfunction; J98.11 Atelectasis; N30.00 Acute cystitis without hematuria; E87.1 Hypo-osmolality and hyponatremia; E86.0 Dehydration; R70.1 Abnormal plasma viscosity; J45.909 Unspecified asthma, uncomplicated; N62 Hypertrophy of breast; R09.02 Hypoxemia; D72.829 Elevated white blood cell count, unspecified; F31.9 Bipolar disorder, unspecified; R74.01 Elevation of levels of liver transaminase levels; R16.0 Hepatomegaly, not elsewhere classified; F18.10 Inhalant abuse, uncomplicated; F19.10 Other psychoactive substance abuse, uncomplicated; F12.90 Cannabis use, unspecified, uncomplicated; Z91.02 Food additives allergy status; Z91.018 Allergy to other foods; Z87.19 Personal history of other diseases of the digestive system; Z11.52 Encounter for screening for COVID-19
CPT/HCPCS: 71045; 71046; 71275; 74177; 74183; 80053; 80306; 81003; 81015; 82248; 83010; 83605; 83615; 85014; 85018; 85025; 85027; 85045; 85610; 86704; 86705; 86706; 86708; 86709; 86803; 86850; 86900; 86901; 86920; 87040; 87086; 87340; 87502; 87811; 99291; A9575; Q9967

== ENCOUNTER 2024-10-21 07:35 | Emergency (ER) | payer OTHER, SELFPAY ==
[2024-10-21 07:39] VITALS: BP 142/83
[2024-10-21 07:40] VITALS: BP 142/83
[2024-10-21 07:41] VITALS: BMI 25.3
--- NOTE | 2024-10-21 07:48 | ED.GENMED ---
History of Present Illness
General
Chief Complaint: Abnormal Lab Value
Source: patient
Time Seen by Provider: 10/21/24 07:36
History of Present Illness
History of Present Illness:
34-year-old male presents to the emergency room for evaluation of abnormal blood work. Patient is an inmate at [facility] where he had 'yearly blood work' yesterday. He was sent here because his hemoglobin was 6.8. Patient denies any
symptoms such as chest pain, shortness of breath, bleeding. Patient has a history of sickle cell disease. He states he has not had any recent crises. No fever or chills.
Past History
Past History
ED Past Medical History: Asthma and Other (sickle cell, GI bleeding, acute chest)
ED Past Surgical History: None and Other (Adenoids)
Patient has exhibited threatening behavior?: No
PSI?: No
Social History
Tobacco: Non-smoker
Alcohol: None
Drug: None
Personal: Single
Living: with family
Employment: Student
Phy Exam
Physical Exam
Physical Exam:
General: Awake, Alert, Oriented X3. No acute distress. Appears chronically ill
Vitals: unremarkable
Head: Atraumatic
Eyes: Pupils equal, EOMI
Throat: Airway intact, no exudates
Neck: Trachea midline
Lungs: Clear and equal b/l
Heart: Regular rate, no murmurs
Abd: Soft, Nontender, No pulsatile mass
Neuro: Nonfocal
Skin: Warm, dry, no rash
Extremities: pulses equal b/l, no edema
Course
Orders/Labs/Results
Orders:
Orders
10/21/24 07:52
Type+Screen Urgent
Basic Metabolic Panel Urgent
Complete Blood Count/With Diff Urgent
Abnormal Lab Results
10/21/24
07:52
RBC 2.34 L 10^6/uL
(4.70-6.10)
Hgb 8.6 L g/dL
(13.0-18.0)
Hct 22.0 L %
(39.0-52.0)
MCH 36.8 H pg
(27.0-31.0)
MCHC 39.1 H g/dL
(33.0-37.0)
RDW 21.9 H %
(11.5-14.5)
Plt Count 445 H 10^3/uL
(130-400)
Abs Immat Gran (auto) 0.1 H 10^3/uL
(0-0.05)
Absolute Monos (auto) 1.5 H 10^3/uL
(0.1-0.6)
Absolute Eos (auto) 1.3 H 10^3/uL
(0-0.7)
Absolute Basos (auto) 0.3 H 10^3/uL
(0-0.2)
Immature Gran % 0.8 H %
(0-0.5)
Monocytes % 14.3 H %
(1.7-9.3)
Eosinophils % 11.8 H %
(0-6)
Basophils % 2.3 H %
(0-2)
Chloride 110 H mmol/L
(98-107)
Carbon Dioxide 20 L mmol/L
(22-30)
Glucose 105 H mg/dl
(70-99)
10/21/24 07:52
10/21/24 07:52
Vital Signs
Initial and Last Documented VS:
Initial Vital Signs
Pulse BP Pulse Ox
86 142/83 96
10/21/24 07:39 10/21/24 07:39 10/21/24 07:39
Last Documented Vital Signs
Temp Pulse Resp BP Pulse Ox
97.1 F 93 19 127/73 95
10/21/24 07:40 10/21/24 10:30 10/21/24 10:30 10/21/24 10:00 10/21/24 10:15
MDM/Problems Addressed
Differential Diagnosis Includes:
Anemia, lab error, aplastic anemia
MDM/Problems Addressed:
Patient's repeat hemoglobin here is adequate for patient with sickle cell disease. No intervention needed. Discharge back to the present.
Chronic conditions affecting care: Other (Sickle cell disease)
*Pulse Oximetry
Patient hypoxic: no
Comment: 98
*Critical Care Note
Total Time (30-74mins, 75-104mins- exclusive of procedures): Not Applicable
Data Reviewed
Review of Other/Old Records Reveals: Labs
Patient Management
Social determinants of health affecting care: Living situation
ED Attending Note
-
Portions of this chart may have been created with voice recognition software.� Occasional wrong word or��sound alike� substitutions may have occurred due to the inherent limitations of voice recognition software.
Discharge Plan
Departure
Patient Disposition: Residential
Date of Disposition: 10/21/24
Time of Disposition: 10:25
Condition: Good
Discharge Problem:
Sickle cell anemia
Instructions: Sickle cell disease
Prescriptions:
No Action
multivitamin [Daily-Suzie] Tablet
1 tab PO DAILY
loratadine 10 mg Tablet
10 mg PO DAILY
folic acid 1 mg Tablet
1 mg PO DAILY Qty: 100 0RF
cyanocobalamin (vitamin B-12) 1,000 mcg tablet
1,000 mcg PO DAILY
hydroxyurea 500 mg capsule
500 mg PO DAILY
Referrals:
[facility] [Family Provider, General]
Interventions
Interventions:
*Risk Screen - Suicide Last Done: 10/21/24 07:44
*Neglect/Abuse Screening Last Done: 10/21/24 07:44
*ED- Fall Risk Assessment Last Done: 10/21/24 07:42
*Nursing Disposition Last Done: 10/21/24 11:07
Discharge Date and Time
Discharge Date/Time: 10/21/24 11:07
Print Language: MICRONESIAN
[2024-10-21 08:00] VITALS: BP 119/60
[2024-10-21 08:15] LABS: Blood Urea Nitrogen 12 mg/dl (9-20); Calcium 9.4 mg/dl (8.4-10.2); Carbon Dioxide 20 mmol/L (22-30); Chloride 110 mmol/L (98-107); Estimated Creatinine Clearance 97 ml/min; Glucose 105 mg/dl (70-99); Potassium 4.3 mmol/L (3.5-5.1); Sodium 141 mmol/L (135-145); eGFR > 60.00
[2024-10-21 09:00] VITALS: BP 110/66
[2024-10-21 09:51] LABS: % Basophils 2.3 % (0-2); % Eosinophils 11.8 % (0-6); % Immature Granulocytes 0.8 % (0-0.5); % Lymphocytes 24.8 % (20.5-51.1); % Monocytes 14.3 % (1.7-9.3); Absolute Basophils 0.3 10^3/uL (0-0.2); Absolute Eosinophils 1.3 10^3/uL (0-0.7); Absolute Immature Granulocytes 0.1 10^3/uL (0-0.05); Absolute Lymphocytes 2.7 10^3/uL (1.2-3.4); Absolute Monocytes 1.5 10^3/uL (0.1-0.6); Absolute Neutrophils 4.9 10^3/uL (1.4-6.5); Hemoglobin 8.6 g/dL (13.0-18.0); Mean Corp Hgb Conc. 39.1 g/dL (33.0-37.0); Mean Corpuscular Hgb 36.8 pg (27.0-31.0); Nucleated Red Blood Cells % 1.9 % (-); Platelet Count 445 10^3/uL (130-400); Red Blood Cell Count 2.34 10^6/uL (4.70-6.10); Red Cell Dist. Width 21.9 % (11.5-14.5); White Blood Cell Count 10.8 10^3/uL (4.8-10.8)
[2024-10-21 10:00] VITALS: BP 127/73
[2024-10-21 10:53] LABS: Normal RBC Morphology No
[2024-10-21 11:00] LABS: Sickled Red Blood Cells 3+
[2024-10-21 11:03] LABS: Anisocytosis 3+; Polychromasia 1+; Target Cells 1+
== END 2024-10-21 11:07 ==
LOC: EMR 07:35
PROVIDERS: EMERGENCY PHYSICIAN Emergency Medicine
DX: D57.1 Sickle-cell disease without crisis (principal)
CPT/HCPCS: 99283; 80048; 85025; 86850; 86900; 86901